=== PATIENT | female | born 1970 | race Caucasian/White ===

== ENCOUNTER → 2020-04-28 10:17 | Outpatient (CLI) | payer MEDICARE, BC, SELFPAY ==
--- NOTE | 2020-04-28 10:17 | MR_ITS ---
PROCEDURE: MR KNEE RT WO CON CLINICAL INDICATION: right knee pain after fall Posttraumatic pain, peripatellar pain and swelling COMPARISON: No exams were available for comparison TECHNIQUE: Routine multiplanar multi echo sequences are performed without gadolinium enhancement. FINDINGS: The posterior cruciate ligament appears intact. There is tear of the ACL with retracted ACL fiber long the posterior aspect of the knee joint. Collateral ligaments appear intact. The patellar tendon and quadriceps tendon appears intact. Horizontal tear involves the posterior horn of the medial meniscus. There are mild osteoarthritic changes of the knee. Small knee joint effusion is noted. Small focus of decreased T1 and increased T2 signal involves the medial aspect of the lateral tibial plateau and could be due to an area of bone marrow edema from bone bruise or developing osteochondrosis. A loose body is suspected along the posterior aspect of the proximal tibia medially posterior to the posterior cruciate ligament insertion. This area measures approximately 5 mm. There is thinning of the patellar cartilage with some increased T2 signal involving the patella posteriorly. There is very mild lateral patellar subluxation. The medial patellofemoral ligament does appear to be intact. There is a small knee joint effusion and a small Figueroa's cyst which measures 4.3 by 0.8 cm. IMPRESSION: 1. ACL tear. 2. Horizontal tear involves the posterior horn of the medial meniscus 3. Mild osteoarthritic changes with knee joint effusion and Figueroa's cyst. 4. Abnormal bone marrow signal intensity of the lateral tibial plateau medially and could be due to an area of bone bruise or osteochondrosis. 5. Chondromalacia patella Dictated by: Catalino Watkins MD 04/28/2020 14:33 Catalino Watkins MD in [place] 04/28/2020 14:33
--- NOTE | 2020-04-28 10:17 | MM_ITS ---
PROCEDURE: MM DIG SC MAMM UNILAT RT CAD Digital Breast Tomosynthesis Included CLINICAL INDICATION: breast ca screening There has been a previous left mastectomy COMPARISON: No exams were available for comparison TECHNIQUE: Standard CC and MLO images and 3D Tomosynthesis was obtained. R2 CAD reviewed. FINDINGS: Moderate diffuse fibroglandular densities are seen throughout the breast. There is a nodular density near the axillary tail likely an intramammary node. There is no suspicious lesion and no suspicious microcalcifications. IMPRESSION: Moderate breast density with no suspicious lesions seen BI-RAD Category: 2 Benign Finding(s) FOLLOW-UP: 1YR 1 Year Follow-up (A letter has been sent to the patient regarding results of the study.) Dictated by: Dr. Reynold Coyle MD 05/04/2020 08:28 Dr. Reynold Coyle MD in [place] 05/04/2020 08:28
== END ==
PROVIDERS: PCP Family Medicine; Visit Provider Family Medicine
DX: M25.561 Pain in right knee; Z12.31 Encounter for screening mammogram for malignant neoplasm of breast
CPT/HCPCS: 73721; 77063; 77067

== ENCOUNTER → 2020-05-17 11:34 | Outpatient (CLI) | payer MEDICARE, BC, SELFPAY ==
--- NOTE | 2020-05-17 11:39 | XR_ITS ---
PROCEDURE: XR KNEE RT 4V CLINICAL INDICATION: right knee pain; weightbearing COMPARISON: No exams were available for comparison FINDINGS: No fracture or dislocation. No lytic or blastic change. There is normal mineralization. There are mild osteoarthritic changes involving all 3 compartments greatest at the medial compartment. Small osteophytes are present at the tibial spines and the medial aspect of the knee joint. There is suggestion of a small suprapatellar effusion. Other findings:None. IMPRESSION: Mild osteoarthritis Dictated by: Catalino Watkins MD 05/17/2020 15:18 Catalino Watkins MD in [place] 05/17/2020 15:18
== END ==
PROVIDERS: PCP Family Medicine; Visit Provider Orthopaedic Surgery
DX: M25.561 Pain in right knee (principal)
CPT/HCPCS: 73564

== ENCOUNTER 2020-07-16 20:40 | Emergency (ER) | payer MEDICARE, MEDICAID, SELFPAY ==
[2020-07-16 20:40] VITALS: BP 143/89; PULSE 117; RESP 16; TEMP 37.1; O2SAT 98; BMI 32.0
--- NOTE | 2020-07-16 21:10 | PC.NURSE ---
NIH of 0 during initial assessment.
--- NOTE | 2020-07-16 21:15 | PC.NURSE ---
called honey for records.
--- NOTE | 2020-07-16 21:56 | ECG_ITS ---
APPROVED REPORT Exam: Resting ECG HR:112 bpm ECG Measurements Heart Rate 112 AXES SD 112 P 72 QRSd 76 QRS 22 QT 470 T 67 QTc 641 Conclusion Sinus tachycardia Cannot rule out Anterior infarct, age undetermined Abnormal ECG Electronically signed by : Kishore Huerta, 07/17/2020 19:40:01
[2020-07-16 22:01] LABS: Basophils % 0.2 % (0.1-2.0); Eosinophils % 0.2 % (0.1-12.0); Hematocrit 38.2 % (37.0-47.0); Hemoglobin 12.4 g/dL (12.2-16.2); Lymphocytes # 0.9 K/mm3 (0.7-4.5); Lymphocytes % 10.8 % (10-50); Mean Corpuscular HGB Conc 32.4 g/dL (31.8-35.4); Mean Corpuscular Hemoglobin 30.6 pg (27.0-31.2); Mean Corpuscular Volume 94.4 fl (81-99); Mean Platelet Volume 7.4 fl (7.4-10.4); Monocytes # 0.2 K/mm3 (0.1-1.0); Monocytes % 1.8 % (1.7-9.3); Neutrophils # 7.2 K/mm3 (1.8-7.8); Platelet Count 303 K/mm3 (142-424); Red Blood Count 4.04 M/mm3 (4.20-5.40); Red Cell Distribution Width 14.7 % (11.5-17.5); White Blood Count 8.3 K/mm3 (4.8-10.8)
[2020-07-16 22:03] LABS: MANUAL DIFFERENTIAL MANUAL DIFFERENTIAL (MANUAL DIFF)
[2020-07-16 22:06] VITALS: BP 126/78; PULSE 102; RESP 16; O2SAT 96
[2020-07-16 22:07] LABS: Alanine Aminotransferase 21 U/L (12-78); Albumin Level 4.2 g/dl (3.5-5.0); Albumin/Globulin Ratio 1.1 (1.1-1.8); Alkaline Phosphatase 73 U/L (38-126); Anion Gap 12.4 mEq/L (5-15); Aspartate Amino Transferase 34 U/L (14-36); Bilirubin,Total 0.2 mg/dl (0.2-1.3); Blood Urea Nitrogen 6 mg/dl (7-17); Calcium 9.5 mg/dl (8.4-10.2); Carbon Dioxide 24 mmol/L (22.0-30.0); Chloride 109 mmol/L (98-107); Creatinine Clearance Estimated 88 mL/min (50-200); Estimated Glomerular Filt Rate 66 ml/min (>60); GFR (African American) 80 ML/MIN (>60); Globulin 3.7 g/dL (1.3-3.2); Glucose 152 mg/dl (74-100); Potassium 3.4 mmoL/L (3.5-5.1); Sodium 142 mmol/L (136-145); Total Protein,Serum 7.9 g/dl (6.3-8.2)
[2020-07-16 22:12] LABS: C-Reactive Protein 32.9 mg/L (0-4)
[2020-07-16 22:21] LABS: Lymphocytes % 14 % (10-50); Neutrophils % 83 % (42-76); Platelet Estimate Normal; RBC Morphology Normal; Total Cells Counted 100
--- NOTE | 2020-07-16 22:21 | HMH.EDNEU ---
ED Disposition Clinical Impression: Weakness Disposition: Home, Self-Care Condition on Discharge: Good Instructions: DI for Muscle Weakness Additional Instructions: see pcp for follow up Referrals: Henry Kirkland MD [Primary Care Provider] - - Critical Care Critical Care Time: No Attestation: On 07/16/20, the high probability of a clinically significant, sudden or life threatening deterioration of the following system(s) required my full and direct attention, intervention and personal management. The time I documented below is in addition to time spent performing reported procedures but includes the following listed in this critical care notation. Medical Decision Making - Medical Records Medical records reviewed: Yes: I reviewed the patient's medical records. - Robert Inquiry Pt receiving controlled substance: No Vital Signs: 07/16/20 20:40 07/16/20 22:06 07/16/20 22:30 Temperature 98.8 F Temperature Source Oral Pulse Rate 102 H 96 H Pulse Rate [Left Radial] 117 H Respiratory Rate 16 16 17 Blood Pressure 126/78 126/81 Blood Pressure [Right Arm] 143/89 H Blood Pressure Mean [Right Arm] 107 Blood Pressure Source [Right Arm] Automatic Cuff Blood Pressure Position [Right Arm] Supine 02 Sat by Pulse Oximetry 98 96 91 L Oxygen Delivery Method Room Air Room Air Room Air 07/16/20 23:30 07/17/20 00:00 Temperature Temperature Source Pulse Rate 96 H 94 H Pulse Rate [Left Radial] Respiratory Rate 16 Blood Pressure 128/83 120/76 Blood Pressure [Right Arm] Blood Pressure Mean [Right Arm] Blood Pressure Source [Right Arm] Blood Pressure Position [Right Arm] 02 Sat by Pulse Oximetry 94 L 95 Oxygen Delivery Method Room Air Room Air - Lab Data Lab results reviewed: Yes: I reviewed the patient's lab results. Lab Results 07/16/20 21:45: WBC 8.3, RBC 4.04 L, Hgb 12.4, Hct 38.2, MCV 94.4, MCH 30.6, MCHC 32.4, RDW 14.7, Plt Count 303, MPV 7.4, Neut % (Auto) 87.0 H, Lymph % (Auto) 10.8, [place] % (Auto) 1.8, Eos % (Auto) 0.2, Baso % (Auto) 0.2, Neut # (Auto) 7.2, Lymph # (Auto) 0.9, [place] # (Auto) 0.2, Eos # (Auto) 0.0, Baso # (Auto) 0.0, Total Counted 100, Neutrophils % (Manual) 83 H, Band Neutrophils % 3.0, Lymphocytes % (Manual) 14, Platelet Estimate Normal, RBC Morphology Normal, ESR 38 H 07/16/20 21:45: Sodium 142, Potassium 3.4 L, Chloride 109 H, Carbon Dioxide 24, Anion Gap 12.4, BUN 6 L, Creatinine 0.90, Estimated Creat Clear 88, Estimated GFR 66, Est GFR ( Amer) 80, Glucose 152 H, Calcium 9.5, Total Bilirubin 0.2, AST 34, ALT 21, Alkaline Phosphatase 73, C-Reactive Protein 32.9 H, Total Protein 7.9, Albumin 4.2, Globulin 3.7 H, Albumin/Globulin Ratio 1.1 07/16/20 21:45: Salicylates < 1.0 L, Acetaminophen < 10 L 07/16/20 21:45: Plasma/Serum Alcohol < 10 07/16/20 23:40: Urine Color Yellow, Urine Appearance Clear, Urine pH 6.0, Ur Specific [place] <= 1.005, Urine Protein Negative, Urine Glucose (UA) Negative, Urine Ketones Negative, Urine Blood Negative, Urine Nitrate Negative, Urine Bilirubin Negative, Urine Urobilinogen 0.2, Ur Leukocyte Esterase Negative Result diagrams: 07/16/20 21:45 07/16/20 21:45 Orders (Tests/Meds): ORDERS Category Date Time Status CT head/brain wo con Stat Cat Scan 07/16/20 22:25 Taken UA [Urinalysis and Microscopic] Stat Lab 07/16/20 23:40 Results UDS [Drug Screen,Urine] Stat Lab 07/16/20 23:40 Received - CT Data CT Scan: Head Time Received: 00:[address] Reviewed: Yes: I have viewed the radiologist's interpretation Preliminary Findings: Normal/NAD - ECG Data Tracing #1 Normal Sinus Rhythm: Yes Ischemic changes: non-specific ST-T wave changes Medical Decision Narrative: has no focal cva changes will ask pt to see pcp for follow up Neuro HPI - General Chief Complaint: Neuro Symptoms/Deficit Stated Complaint: possible stroke Time Seen by Provider: 07/16/20 20:50 Mode of Arrival: Wheelchair Source of Information: [facility]
[2020-07-16 22:25] LABS: Erythrocyte Sedimentation Rate 38 mm/hr (0-20)
--- NOTE | 2020-07-16 22:25 | CT_ITS ---
PROCEDURE: CT HEAD/BRAIN WO CON CLINICAL INDICATION: altered mental status COMPARISON: No exams were available for comparison TECHNIQUE: Axial images obtained. All CT scans at the facility use one or more dose reduction, viz: automated exposure control, ma/kV adjustment per patient size (including targeted exams where dose is matched to indication, i.e. head), or iterative reconstruction technique. FINDINGS: No midline shift, mass effect, intracranial hemorrhage, hydrocephalus, or extra-axial fluid collection is evident. The sylvian fissures and cortical sulci are mildly prominent. The ventricular system is normal. The calvarium has an unremarkable appearance. No mastoid effusion. No sinus air-fluid level. IMPRESSION: Findings of mild age-appropriate cortical atrophy, no acute intracranial pathology noted Dictated by: Dr. Reynold Coyle MD 07/17/2020 08:24 Dr. Reynold Coyle MD in [place] 07/17/2020 08:24
[2020-07-16 22:30] VITALS: BP 126/81; PULSE 96; RESP 17; O2SAT 91
[2020-07-16 22:38] LABS: Acetaminophen < 10 ug/ml (10-30); Salicylate < 1.0 mg/dL (2.0-20.0)
[2020-07-16 22:39] LABS: Ethyl Alcohol < 10 mg/dl (0-10)
[2020-07-16 23:30] VITALS: BP 128/83; PULSE 96; O2SAT 94
[2020-07-16 23:48] LABS: Microscopic, Urine URINE MICROSCOPIC (MICROSCOPIC)
[2020-07-17] VITALS: BP 120/76; PULSE 94; RESP 16; O2SAT 95
[2020-07-17 00:10] LABS: Appearance,Urine CLEAR (Clear); Bilirubin,Urine Negative (Negative); Blood, Urine Negative (Negative); Color,Urine YELLOW (Yellow); Glucose,Urine (UA) Negative (Negative); Ketones,Urine Negative (Negative); Leukocyte Esterase,Urine Negative (Negative); Nitrate,Urine Negative (Negative); Protein,Urine Negative (Negative); Specific Gravity, Urine <= 1.005 (1.005-1.030); Urobilinogen,Urine 0.2 EU/dl (0.2)
[2020-07-17 00:19] LABS: Amphetamine/Metha Screen,Urine Negative ng/ml (<1000)
[2020-07-17 00:20] LABS: Barbiturates Screen,Urine Negative ng/ml (<200); Benzodiazepines Screen,Urine Positive ng/ml (<200)
[2020-07-17 00:21] VITALS: BP 120/76; PULSE 95; RESP 16; TEMP 36.7; O2SAT 95
[2020-07-17 00:21] LABS: Cannabinoid Screen,Urine Positive ng/ml (<50); Methadone Screen,Urine Negative ng/ml (<300)
[2020-07-17 00:22] LABS: Cocaine Screen,Urine Negative ng/ml (<300)
[2020-07-17 00:23] LABS: Opiate Screen,Urine Negative ng/ml (<300); Phencyclidine Screen,Urine Negative ng/ml (<25)
[2020-07-17 00:26] LABS: Amorphous Sediment,Urine Trace /lpf; Squamous Epithelial Cell,Urine Occasional #/hpf (0-5)
== END 2020-07-17 00:46 | disposition home or self-care (01) ==
PROVIDERS: Emergency Provider Emergency Medicine; PCP Family Medicine
DX: R53.83 Other fatigue (principal); R26.9 Unspecified abnormalities of gait and mobility; J44.9 Chronic obstructive pulmonary disease, unspecified; I25.10 Atherosclerotic heart disease of native coronary artery without angina pectoris; I10 Essential (primary) hypertension; F41.9 Anxiety disorder, unspecified; F17.210 Nicotine dependence, cigarettes, uncomplicated; Z79.899 Other long term (current) drug therapy
CPT/HCPCS: 36415; 70450; 80053; 80305; 80329; 81001; 85007; 85025; 85651; 86140; 93005; 99283

== ENCOUNTER → 2020-09-04 12:34 | Outpatient (CLI) | payer MEDICARE, MEDICAID, SELFPAY ==
[2020-09-04 13:10] LABS: Basophils % 0.5 % (0.1-2.0); Eosinophils # 0.2 K/mm3 (0.0-0.4); Eosinophils % 3.2 % (0.1-12.0); Hematocrit 39.8 % (37.0-47.0); Hemoglobin 12.6 g/dL (12.2-16.2); Lymphocytes # 1.7 K/mm3 (0.7-4.5); Lymphocytes % 35.5 % (10-50); Mean Corpuscular HGB Conc 31.6 g/dL (31.8-35.4); Mean Corpuscular Hemoglobin 30.7 pg (27.0-31.2); Mean Corpuscular Volume 97.3 fl (81-99); Mean Platelet Volume 7.4 fl (7.4-10.4); Monocytes # 0.3 K/mm3 (0.1-1.0); Monocytes % 7.1 % (1.7-9.3); Neutrophils # 2.6 K/mm3 (1.8-7.8); Neutrophils % 53.7 % (37.0-80.0); Platelet Count 357 K/mm3 (142-424); Red Blood Count 4.09 M/mm3 (4.20-5.40); Red Cell Distribution Width 14.4 % (11.5-17.5); White Blood Count 4.8 K/mm3 (4.8-10.8)
[2020-09-04 14:32] LABS: Chloride 105 mmol/L (98-107); Potassium 3.9 mmoL/L (3.5-5.1); Sodium 139 mmol/L (136-145)
[2020-09-04 14:34] LABS: Alanine Aminotransferase 11 U/L (12-78); Aspartate Amino Transferase 20 U/L (14-36); Blood Urea Nitrogen 8 mg/dl (7-17); Estimated Glomerular Filt Rate 76 ml/min (>60); GFR (African American) 92 ML/MIN (>60)
[2020-09-04 14:35] LABS: Albumin Level 4.2 g/dl (3.5-5.0); Albumin/Globulin Ratio 1.3 (1.1-1.8); Alkaline Phosphatase 54 U/L (38-126); Anion Gap 13.9 mEq/L (5-15); Bilirubin,Total 0.3 mg/dl (0.2-1.3); Calcium 9.4 mg/dl (8.4-10.2); Carbon Dioxide 24 mmol/L (22.0-30.0); Globulin 3.3 g/dL (1.3-3.2); Glucose 87 mg/dl (74-100); Total Protein,Serum 7.5 g/dl (6.3-8.2)
== END ==
PROVIDERS: PCP Family Medicine; Visit Provider Orthopaedic Surgery
DX: Z01.818 Encounter for other preprocedural examination (principal); M17.11 Unilateral primary osteoarthritis, right knee; Z11.52 Encounter for screening for COVID-19
CPT/HCPCS: 36415; 80053; 85025; 86850

== ENCOUNTER 2020-09-05 09:57 | Observation (INO) | payer MEDICARE, MEDICAID, SELFPAY ==
[2020-09-01 12:22] VITALS: BMI 31.2
[2020-09-05] VITALS (23 sets, daily range): BP systolic 102–155; BP diastolic 53–89; PULSE 84–109; RESP 16–20; TEMP 36.2–43; O2SAT 93–100
[2020-09-05 06:48] LABS: Adenovirus,PCR Not Detected (NotDetected); Bordetella Pertussis Not Detected (NotDetected); Chlamydophila Pneumoniae, PCR Not Detected (NotDetected); Coronavirus 19, PCR Not Detected (NotDetected); Coronavirus 229E Not Detected (NotDetected); Coronavirus NL63 Not Detected (NotDetected); Coronavirus OC43 Not Detected (NotDetected); Coronovirus HKU1,PCR Not Detected (NotDetected); Human Metapneumovirus Not Detected (NotDetected); Influenza A, PCR Not Detected (NotDetected); Influenza AH1, 2009 Not Detected (NotDetected); Influenza AH1, PCR Not Detected (NotDetected); Influenza AH3,PCR Not Detected (NotDetected); Influenza B, PCR Not Detected (NotDetected); Mycoplasma Pneumoniae, PCR Not Detected (NotDetected); Parainfluenza 1, PCR Not Detected (NotDetected); Parainfluenza 2, PCR Not Detected (NotDetected); Parainfluenza 3, PCR Not Detected (NotDetected); Parainfluenza 4, PCR Not Detected (NotDetected); Respiratory Syncytial Virus Not Detected (NotDetected); Rhinovirus/Enterovirus Not Detected (NotDetected)
--- NOTE | 2020-09-05 06:54 | HMH.ANESCL ---
[facility] Anesthesia Checklist - Patient Identification Patient Identification: Arm Band - Structural Data Admitted From: Home Planned Operative Procedure/s: TKA Consent for Planned Operative Procedure(s) Verified: Yes - NPO Status Verified Time NPO: 00:00 - Additional verifications Anesthesia Reactions: No Hx Blood Transfusions: No Blood Transfusion Reaction: No - Airway Assessment C-Spine Mobility Assessed: Yes TMJ Mobility Assessed: Yes Dentition: Edentulous - Neurological Assessment Level of Consciousness: Awake Hx Seizures: No Numbness or tingling in extremities: No - Anesthesia Plan Anesthesia Risk discussed: Yes Anesthesia Plan: Verified ASA Class: III Anesthesia Type: General w/block [facility] History I have reviewed the patient's past medical history: Yes Medical History: Reports:: Anxiety, Cancer (breast), Chronic Obstructive Pulmonary Disease (COPD), Coronary Artery Disease, Hypertension Denies:: Diabetes Mellitus Type 1, Diabetes Mellitus Type 2, Internal Pacemaker, MRSA, Seizures *Have you ever received a pneumonia vaccine?: Yes *Have you received a flu vaccine this season?: Yes Other Medical History: Reports: Arthritis. Denies: Blood Transfusion Reaction Anesthesia experience/problems:: None Laterality Cases: Left: Mastectomy, Bilateral: Carpal Tunnel Release Other Surgeries: Yes: Angioplasty, Cancer Surgery, Tubal Ligation. No: Pacemaker Amputation: No - *Social History Last grade of school completed: 11th or 12th Smoking Status: Current every day smoker Tobacco Type: cigarettes # Packs/Day (cigarettes): 1 Alcohol Intake: never Substance Use Type: denies use *Occupational Status:: disabled Housing: house Household Members: family *Travel in the last 8 weeks: None - Psychiatric History Pschychiatric History:: Reports:: Anxiety Family Hx:: Stroke, Coronary Artery Disease
[2020-09-05 06:56] LABS: Urine Pregnancy, HCG Qual. Negative (Negative)
--- NOTE | 2020-09-05 12:23 | HMH.ANESI ---
[facility] Anesthesia Record Part I Intake, IV Amount: 800 Estimated blood loss (mL): 30 Urine output (mL): 100 Blood Pressure: 120/83 SaO2: 94 Pulse Rate: 109 Respiratory Rate: 20 Temperature: 97.2 F Patient is:: Awake Stable to PACU at:: 12:20
--- NOTE | 2020-09-05 12:36 | XR_ITS ---
PROCEDURE: XR KNEE RT 2V CLINICAL INDICATION: TKA Follow-up knee replacement COMPARISON: CR XR KNEE RT 4V from 05/17/2020 FINDINGS: Status post total right knee replacement. Good alignment. Postsurgical gas is. Transverse lucencies are present at the proximal medial aspect of the proximal tibia and may be related to the surgical procedure. IMPRESSION: Status post total knee replacement with good alignment as described above. Dictated by: Catalino Watkins MD 09/05/2020 13:00 Catalino Watkins MD in [place] 09/05/2020 13:00
--- NOTE | 2020-09-05 13:03 | PC.NURSE ---
Report received from MONUMENT CARVER.
--- NOTE | 2020-09-05 13:25 | HMH.OPNOTE ---
Date of procedure: 09/05/20 Pre-op Diagnosis:: 1. Degenerative arthritis, right knee 2. ACL tear, right knee 3. Medial meniscal tear, right knee Post-op Diagnosis:: Same Procedure performed:: Uncemented total knee arthroplasty, right Surgeon:: Julián Kenney MD Secret Code Expert(s):: Billie Camargo [employer]:: [facility] Anesthesia: regional (Adductor canal block), spinal, LMA Estimated blood loss (mL): 30 Clinical Note:: Patient is a 50-year-old female with predominantly medial compartment osteoarthritis, ACL tear and medial meniscus tear of her right knee presented with unremitting severe pain not relieved by conservative management. Patient also reports that her knee gives out on a regular basis and she is at risk of falling and injuring herself. The pain is constant, interfering with her activities of daily living; she also reports night pain and sleep disturbance on a daily basis. The symptoms are are advanced to the point that it is becoming a hazard for the patient with risk of falling and injuring herself. A total knee arthroplasty is indicated to relieve the pain, improve function, reduce the risk of falls and improve quality of life. Her symptoms started following an injury [place] a gas station in March 2020. Please refer to my office note for full details. Operative findings:: As noted on the preoperative evaluation, the knee joint has a range of motion from 5 to 110 degrees of flexion. She also has findings consistent with ACL deficiency with the positive anterior drawers, positive Anna Marie's and positive pivot shift test. As seen on the x-rays, mainly the medial and patellofemoral compartments are showing degenerative changes with with loss of articular cartilage and osteophyte formation. There is complete tear of the ACL and there is degenerative medial meniscal tear. There is osteophyte formation mainly over the medial compartment. Bone quality is excellent. Operative note:: On the day of the surgery the patient and her daughter were seen in the preoperative area. I have again reviewed the clinical and x-ray findings and again discussed the diagnosis, natural history and management options in detail including both nonsurgical and surgical. Patient has degenerative arthritis of the right knee with ACL and medial meniscal tears. She has failed to respond satisfactorily to appropriate conservative management so far and has opted for a total knee arthroplasty. The right knee joint is stiff and painful, and is limiting mobility, ADLs and quality of life. Also the knee gives out and patient is at risk of falls resulting in fractures. I have again discussed the details of the procedure, risks and benefits and alternatives in detail. The complications discussed include but are not limited to infection, injury to nerves and blood vessels including injury to popliteal artery, injury to tendons and ligaments, DVT and PE, fat embolism, intraoperative fracture, limb length inequality, patella fracture, patellofemoral instability, patellar clunk syndrome, quadriceps and patellar tendon rupture, implant failure, component loosening, periprosthetic femur and tibia fractures, stiffness /arthrofibrosis, limp, incomplete relief of pain, incomplete functional recovery, likely need for further surgery in future including revision and anesthetic complications including heart attack, stroke and even . We also discussed about the likely need for blood transfusion and transfusion reactions. We discussed how any of these events can be devastating. We have discussed nonsurgical alternatives as well. Patient understands and wishes to proceed with a right total knee arthroplasty as planned and I believe that he is fully informed as to the risks, benefits, and alternatives including nonsurgical alternatives. We also discussed the postoperative course including the rehab and physical therapy required. A physical examination was performed and documented. Mina
--- NOTE | 2020-09-05 13:53 | P.CONPHA_ITS ---
[facility] Pharmacy VTE Monitoring - Patient Demographics Admission date: 09/05/20 Report Date: 09/05/20 Time: 13:53 Allergies/Adverse Reactions: Patient Allergies tramadol Adverse Reaction (Severe, Verified 09/05/20 06:26) Vomiting Height: 1.52 m Weight: 72.575 kg - Prophylaxis VTE Prophylaxis Ordered?: Yes Types of VTE Prophylaxis: IPCS Thigh High, Pharmacological Location of Applied Device: Bilateral Lower Extremeties Pharmacologic Type: Other (XARELTO)
[2020-09-05 14:33] LABS: Microscopic,Cath URINE MICROSCOPIC (MICROSCOPIC)
--- NOTE | 2020-09-05 14:36 | PC.NURSE ---
Dr. Kenney in room.
[2020-09-05 14:44] LABS: Appearance,Urine/Cath CLEAR (Clear); Bilirubin,Cath Negative (Negative); Blood, Urine/Cath Negative (Negative); Color,Urine/Cath YELLOW (Yellow); Glucose,Urine/Cath (UA) Negative (Negative); Ketones,Urine/Cath Negative (Negative); Leukocyte Esterase,Cath Negative (Negative); Nitrate,Cath Negative (Negative); Protein,Urine/Cath Negative (Negative); Specific Gravity, Urine/Cath 1.025 (1.005-1.030); Urobilinogen,Cath 0.2 EU/dl (0.2)
[2020-09-05 14:46] LABS: Bacteria,Urine/Cath 2+ /lpf; Mucus,Urine/Cath 1+ /lpf; RBC,Urine/Cath Occasional # /hpf (0-3)
--- NOTE | 2020-09-05 15:15 | HMH.ORTHHP ---
*Admission Date: 09/05/20 *Reason for consult:: S/p total knee arthroplasty, right *History of present illness: Patient is 50 year old female admitted to hospital today after an uneventful right total knee arthroplasty. She developed right knee pain following an injury in March 2020. Evaluation including x-rays and MRI scan of the right knee showed degenerative arthritis, medial meniscal tear and ACL tear. She has been having chronic right knee pain which has failed to respond satisfactorily to nonsurgical management. Following evaluation in the office, patient elected to proceed with a total knee arthroplasty. X-rays of her knee joint showed moderate degenerative changes over the medial and patellofemoral compartments. The pain increases with walking, or standing for too long. Please refer to my office note for full details. Total knee arthroplasty is indicated to reduce the risk of falls, improve her pain and mobility and quality of life. The surgical and nonsurgical alternatives were discussed in detail with the patient as well as the risks and benefits of the surgery. [facility] History I have reviewed the patient's past medical history: Yes Medical History: Reports:: Anxiety, Cancer (breast), Chronic Obstructive Pulmonary Disease (COPD), Coronary Artery Disease, Hypertension Denies:: Diabetes Mellitus Type 1, Diabetes Mellitus Type 2, Internal Pacemaker, MRSA, Seizures *Have you ever received a pneumonia vaccine?: Yes *Have you received a flu vaccine this season?: No Other Medical History: Reports: Arthritis. Denies: Blood Transfusion Reaction Anesthesia experience/problems:: None Laterality Cases: Left: Mastectomy, Bilateral: Carpal Tunnel Release Other Surgeries: Yes: Angioplasty, Cancer Surgery, Tubal Ligation. No: Pacemaker Amputation: No - *Social History Last grade of school completed: 11th or 12th Smoking Status: Current every day smoker Tobacco Type: cigarettes # Packs/Day (cigarettes): 1 Alcohol Intake: never Substance Use Type: denies use *Occupational Status:: disabled Housing: house Household Members: family *Travel in the last 8 weeks: None - Psychiatric History Pschychiatric History:: Reports:: Anxiety Family Hx:: Stroke, Coronary Artery Disease Review of Systems - Review of Systems Review of systems:: pertinent systems reviewed and negative unless documented below - Constitutional Denies anorexia, Denies chills, Denies fever(s) - Eyes Denies change in vision - ENT Denies abnormal hearing - *Cardiovascular Denies chest pain, Denies shortness of breath - *Respiratory Denies chest congestion, Denies shortness of breath - *Gastrointestinal Denies abdominal pain, Denies change in bowel habits - *Musculoskeletal Reports abnormal walking, Reports joint pain, Reports limited joint movement - *Neurologic Reports abnormal walking, Reports frequent falls, Denies seizure-like activity, Denies dizziness, Denies tingling/numbness/burning sensations - Endocrine Denies cold intolerance, Denies heat intolerance - Hematologic/Lymphatic Denies easy bleeding, Denies easy bruising Meds Home Medications Medication Instructions Recorded Confirmed Type rivaroxaban 20 mg tablet 20 mg PO DAILY tab 07/01/17 09/05/20 History venlafaxine 150 mg 150 mg PO DAILY 10/22/19 09/05/20 History capsule,extended release 24 hr naproxen 500 mg tablet 500 mg PO BID PRN #30 tab 07/18/20 09/05/20 Rx trazodone 100 mg tablet 100 mg PO HS PRN #30 tab 07/18/20 09/05/20 Rx albuterol sulfate 90 mcg/actuation 2 puff INHALATION Q4-6H PRN #6.7 g 08/02/20 09/05/20 Rx aerosol inhaler Chlorhexidine Gluconate 1 applic TOPICAL Q5M 09/01/20 09/05/20 History Fluticasone/Umeclidin/Vilanter 1 inh INHALATION DAILY 09/01/20 09/05/20 History [Phu Ellipta] Metoprolol Succinate [Metoprolol 25 mg PO DAILY 09/01/20 09/05/20 History Succinate 25mg Tablet*] Mupirocin [Centany] 1 applic TOPICAL BID 09/01/20 09/05/20 History diazePAM [
--- NOTE | 2020-09-05 15:22 | PC.NURSE ---
Dr. Kirkland Office notified of medical consult.
--- NOTE | 2020-09-05 17:58 | PC.NURSE ---
Dr. Kirkland in room.
--- NOTE | 2020-09-05 18:16 | HMH.CONS ---
*Admission Date: 09/05/20 *History of present illness: Patient is 50 year old female admitted to hospital today after an uneventful right total knee arthroplasty. She developed right knee pain following an injury in March 2020. Evaluation including x-rays and MRI scan of the right knee showed degenerative arthritis, medial meniscal tear and ACL tear. She has been having chronic right knee pain which has failed to respond satisfactorily to nonsurgical management. Following evaluation in the office, patient elected to proceed with a total knee arthroplasty. X-rays of her knee joint showed moderate degenerative changes over the medial and patellofemoral compartments. The pain increases with walking, or standing for too long. Please refer to my office note for full details. Total knee arthroplasty is indicated to reduce the risk of falls, improve her pain and mobility and quality of life. The surgical and nonsurgical alternatives were discussed in detail with the patient as well as the risks and benefits of the surgery. History of ca breast left, excised 9 years ago. 12 nodes were positive, and she underwent excessive xrt. 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 She is s/p excision of her first rib on the right. Longstanding history of tobacco, began age 13. History of copd. Has home 02, which she infrequently uses. History of cad, s/p angioplasty. Had previously seen Dr Callejas. Pneumonia w/sepsis, treated at [facility] and ut'd on omnicef/azithromycin. [facility] History Medical History: Reports:: Anxiety, Cancer (breast), Chronic Obstructive Pulmonary Disease (COPD), Coronary Artery Disease, Hypertension Denies:: Diabetes Mellitus Type 1, Diabetes Mellitus Type 2, Internal Pacemaker, MRSA, Seizures *Have you ever received a pneumonia vaccine?: Yes *Have you received a flu vaccine this season?: No Other Medical History: Reports: Arthritis. Denies: Blood Transfusion Reaction Anesthesia experience/problems:: None Laterality Cases: Left: Mastectomy, Bilateral: Carpal Tunnel Release Other Surgeries: Yes: Angioplasty, Cancer Surgery, Tubal Ligation. No: Pacemaker Amputation: No - *Social History Last grade of school completed: 11th or 12th Smoking Status: Current every day smoker Tobacco Type: cigarettes # Packs/Day (cigarettes): 1 Alcohol Intake: never Substance Use Type: denies use *Occupational Status:: disabled Housing: house Household Members: family *Travel in the last 8 weeks: None - Psychiatric History Pschychiatric History:: Reports:: Anxiety Family Hx:: Stroke, Coronary Artery Disease Review of Systems - Constitutional Reports lack of energy - Eyes Denies change in vision - ENT Reports neck pain - *Cardiovascular Reports shortness of breath with activity, Denies chest pain - *Respiratory Reports shortness of breath with activity, Denies chest congestion - *Gastrointestinal Denies abdominal pain - *Genitourinary Denies painful urination - *Musculoskeletal Reports abnormal walking, Reports joint pain, Reports back pain, Reports joint swelling, Reports limited joint movement, Reports muscle weakness, Reports stiffness - Integumentary/Breasts Denies yellowing of the skin - *Neurologic Reports abnormal walking, Reports frequent falls, Denies abnormal hearing, Denies seizure-like activity, Denies dizziness, Denies tingling/numbness/burning sensations - Psychiatric Reports anxiety, Reports depression, Reports panic attacks - Endocrine Denies rapid, pounding, or irregular heartbeat - Hematologic/Lymphatic Reports easy bruising, Denies easy bleeding - Allergic/Immunologic Denies hives Meds Home Medications Medication Instructions Recorded Confirmed Type rivaroxaban 20 mg tablet 20 mg PO DAILY tab 07/01/17 09/05/20 History venlafaxine 150 mg 150 mg PO DAILY 10/22/19 09/05/20 History capsule,extended release 24 hr naproxen 500 mg tablet 500 mg PO BI
[2020-09-06] VITALS (9 sets, daily range): BP systolic 102–142; BP diastolic 62–86; PULSE 93–108; RESP 16–20; TEMP 36.2–37.1; O2SAT 96–100
--- NOTE | 2020-09-06 03:43 | PC.NURSE ---
PT HAS DONE WELL THIS SHIFT AND HAS RESTED. PAIN CONTROLLED WITH PRN MEDS. PT HAS F/C WHICH IS PATENT AND DRAINING YELLOW URINE. VSS. KNEE IMMOBILIZER IN PLACE AND PILLOW UNDER ANKLE PER ORDERS WELL POLAR PACK. LUNGS CTAB AND BOWELS ARE NORMOACTIVE. PT TOLERATING REGULAR DIET. CALL SILVESTRE IN REACH.
--- NOTE | 2020-09-06 05:50 | PC.NURSE ---
radiology at bedside for xray
--- NOTE | 2020-09-06 06:00 | XR_ITS ---
PROCEDURE: XR CHEST PORTABLE CLINICAL HISTORY: copd and history of pneumonia COMPARISON: No exams were available for comparison FINDINGS: The cardiomediastinal silhouette and pulmonary vascularity are within normal limits. A vascular stent is present in the region the right brachiocephalic vein and superior vena cava. The stent appears collapsed at the brachiocephalic region. Patchy density is present in the right mid and lower lung zone suspicious for an area pneumonia with some bronchial thickening. There are no previous exams available to confirm with if this is acute or chronic. The anterior aspect of the right 2nd rib is missing and could be due to prior resection. Please correlate with surgical history. Bilateral cervical ribs.. IMPRESSION: 1. Suspect pneumonia in the right mid and lower lung zone with some pleural thickening. 2. Collapsed a vascular stent in the right brachiocephalic/subclavian region 3. Bilateral cervical ribs with missing portion of the right 2nd rib anteriorly which could be due to prior surgery. Please correlate with surgical history. Dictated by: Catalino Watkins MD 09/06/2020 06:29 Catalino Watkins MD in [facility] 09/06/2020 06:29
--- NOTE | 2020-09-06 06:54 | PC.NURSE ---
lab at bedside
[2020-09-06 07:14] LABS: Basophils % 0.3 % (0.1-2.0); Eosinophils # 0.2 K/mm3 (0.0-0.4); Eosinophils % 2.4 % (0.1-12.0); Hematocrit 32.9 % (37.0-47.0); Hemoglobin 10.7 g/dL (12.2-16.2); Lymphocytes % 26.5 % (10-50); Mean Corpuscular HGB Conc 32.6 g/dL (31.8-35.4); Mean Corpuscular Hemoglobin 31.1 pg (27.0-31.2); Mean Corpuscular Volume 95.5 fl (81-99); Mean Platelet Volume 7.5 fl (7.4-10.4); Monocytes # 0.5 K/mm3 (0.1-1.0); Monocytes % 6.7 % (1.7-9.3); Neutrophils # 4.8 K/mm3 (1.8-7.8); Neutrophils % 64.1 % (37.0-80.0); Platelet Count 286 K/mm3 (142-424); Red Blood Count 3.44 M/mm3 (4.20-5.40); Red Cell Distribution Width 14.6 % (11.5-17.5); White Blood Count 7.5 K/mm3 (4.8-10.8)
--- NOTE | 2020-09-06 07:33 | P.PN_ITS ---
[facility] Anesthesia Record Part II Discharge Time: 13:00 Destination: Obstetric PACU nurse assessment reviewed?: Yes Patient Condition:: Good Anesthesia Complications:: None Swallowing reflex intact?: Yes Cyanosis?: No Blood Pressure: 121/77 Pulse Rate: 93 Temperature: 97.2 F Mental Status: Alert & Oriented Pain level:: 2 Nausea and/or vomitting:: None Intake, IV Amount: 0
[2020-09-06 07:38] LABS: Anion Gap 5.8 mEq/L (5-15); Blood Urea Nitrogen 9 mg/dl (7-17); Carbon Dioxide 24 mmol/L (22.0-30.0); Chloride 110 mmol/L (98-107); Creatinine Clearance Estimated 95 mL/min (50-200); Estimated Glomerular Filt Rate 76 ml/min (>60); GFR (African American) 92 ML/MIN (>60); Glucose 98 mg/dl (74-100); Potassium 3.8 mmoL/L (3.5-5.1); Sodium 136 mmol/L (136-145)
[2020-09-06 07:41] LABS: Calcium 7.7 mg/dl (8.4-10.2)
--- NOTE | 2020-09-06 09:14 | HMH.CONFU ---
Internal Medicine - PN: Subj *Date: 09/06/20 *Time: 09:20 Interval history: 50-year-old female patient resting in bed quietly with eyes closed, she awakens to verbal stimuli. She reports pain is at a tolerable level, [id number] is at bedside reports [id number] had a good night. She denies any chest pain, shortness of breath Exam Vital signs and Labs for Last 24 Hours: Temp Pulse Resp BP Pulse Ox 98.6 F 103 H 20 102/62 L 96 09/06/20 08:00 09/06/20 08:00 09/06/20 08:00 09/06/20 08:00 09/06/20 08:00 Laboratory Results - last 24 hr 09/05/20 08:45: Urine Color Yellow, Urine Appearance Clear, Urine pH 7.0, Ur Specific [place] 1.025, Urine Protein Negative, Urine Glucose (UA) Negative, Urine Ketones Negative, Urine Blood Negative, Urine Nitrate Negative, Urine Bilirubin Negative, Urine Urobilinogen 0.2, Ur Leukocyte Esterase Negative, Urine RBC Occasional, Urine WBC 3-5, Ur Squamous Epith Cells 10-20, Urine Bacteria 2+ A 09/06/20 07:00: WBC 7.5 D, RBC 3.44 L, Hgb 10.7 L, Hct 32.9 L, MCV 95.5, MCH 31.1, MCHC 32.6, RDW 14.6, Plt Count 286, MPV 7.5, Neut % (Auto) 64.1, Lymph % (Auto) 26.5, [place] % (Auto) 6.7, Eos % (Auto) 2.4, Baso % (Auto) 0.3, Neut # (Auto) 4.8, Lymph # (Auto) 2.0, [place] # (Auto) 0.5, Eos # (Auto) 0.2, Baso # (Auto) 0.0 09/06/20 07:00: Sodium 136, Potassium 3.8, Chloride 110 H, Carbon Dioxide 24, Anion Gap 5.8, BUN 9, Creatinine 0.80, Estimated Creat Clear 95, Estimated GFR 76, Est GFR ( Amer) 92, Glucose 98, Calcium 7.7 L D I & O for Last 24 hours: Intake & Output 09/03/20 09/04/20 09/05/20 09/06/20 23:59 23:59 23:59 23:59 Intake Total 1050 / 1050 0 / 0 Output Total 100 / 100 600 / 600 Balance 950 / 950 -600 / -600 - Constitutional no acute distress - *Routine HEENT Exam Head: Present: normocephalic Eye: Present: EOMI ENT: Present: mucous membranes moist - *Routine Neck Exam Present: trachea midline. Absent: supple, tracheal deviation - *Routine Respiratory Exam Present: CTA bilaterally. Absent: accessory muscle use - *Routine Cardiovascular Exam Present: RRR - *Routine Abdominal Exam Present: soft, normoactive bowel sounds. Absent: tenderness, firm - *Routine Extremities Exam Present: edema, pulses intact. Absent: cyanosis, clubbing, calf tenderness - *Routine Skin Exam Present: dry, warm. Absent: intact, cyanosis, erythema Comments: Right knee with dressing and knee immobilizer in place - *Routine Neurological Exam Present: alert, oriented X3. Absent: altered mental status - Routine Psychiatric Exam Present: normal affect, normal thought process. Absent: auditory hallucinations, visual hallucinations Assessment and Plan (1) Osteoarthritis of right knee Status: Acute Category: Medical Code(s): M17.11 - Unilateral primary osteoarthritis, right knee (2) Complete tear of anterior cruciate ligament of right knee Status: Acute Category: Medical Code(s): S83.511A - Sprain of anterior cruciate ligament of right knee, initial encounter (3) Tear of medial meniscus of right knee, current Status: Acute Category: Medical Code(s): S83.241A - Other tear of medial meniscus, current injury, right knee, initial encounter (4) History of breast cancer in female Status: Acute Category: Medical Code(s): Z85.3 - Personal history of malignant neoplasm of breast (5) Carotid artery stenosis Status: Chronic Category: Medical Code(s): I65.29 - Occlusion and stenosis of unspecified carotid artery (6) Coronary arteriosclerosis Status: Chronic Category: Medical Code(s): I25.10 - Atherosclerotic heart disease of [place] coronary artery without angina pectoris (7) Hypertensive heart disease Status: Chronic Category: Medical Code(s): I11.9 - Hypertensive heart disease without heart failure (8) Peripheral arterial occlusive disease Status: Chronic Category: Medical Code(s): I77.9 - Disorder of arteries and arterioles,
--- NOTE | 2020-09-06 09:15 | PC.NURSE ---
THERAPY AT BEDSIDE. PT DONE VERY WELL AMBULATING.
--- NOTE | 2020-09-06 09:21 | HMH.PTEV ---
Physical Therapy Evaluation Rehab PT IP Evaluation Start: 09/05/20 13:15 Freq: ONCE Status: Active Protocol: Document 09/06/20 09:17 WILLIE (Rec: 09/06/20 09:21 WILLIE [id number]) Subjective/History History History This is the initial IP PT evaluation for Gila Ruf. Pt is a 50 y/o female admitted to [facility] s/p R TKA. Pt had sx Subjective Subjective pt reports c/o pain in R knee Rehab PT IP Eval Objective Appearance Patient Behavior Appropriate,Cooperative Patient Orientation Person,Place,Time Difficulty following instructions none Speech Pattern Clear Ambulation Patient Able to Ambulate Yes Ambulation Observation IP General Gait Pattern Observation Antalgic Gait,Decrease Weight Bear (R),Decrease Stride Lngth (L) Ambulation Distance (feet) 50 Ambulation Assistive Device Standard Walker Ambulation Ability Contact Guard/Hand Hold Balance Ability to Arise Able, uses arms to help Sitting Balance Steady, safe Standing Balance Steady, wide stance Dynamic Sitting Balance Ability Good Dynamic Standing Balance Ability Fair Transfers Bed Transfer Ability Supervision/Stand by,Contact Guard/Hand Hold Chair Transfer Ability Supervision/Stand by Sit to Stand Bed Transfer Ability Supervision/Stand by Sit to Stand Chair Transfer Ability Supervision/Stand by ROM RLE PT ROM Status ABN Abnormal ROM Comment knee immobilizer MMT RLE PT MMT ABN Abnormal MMT Grade 3-/5 Rehab PT IP prob,goals,plan Problems Date of Evaluation: 09/06/20 PT IP Problems Bed Mobility,Transfers,Gait Rehab Potential Rehab Potential Fair Equipment Needs Assistive Devices Rolling / Wheeled Walker Plan PT Intervention Plan Bed Mobility,Transfers,Gait, Balance,Self care,Safety, Therapeutic Exercise PT Plan Frequency BID Duration LOS Discharge Goals Bed Transfer Ability Supervision/Stand by,Contact Guard/Hand Hold Sit to Stand Chair Transfer Ability Supervision/Stand by,Contact Guard/Hand Hold Ambulation Assistive Device Standard Walker Ambulation Distance (feet) 50 Discharge Plan PT Discharge Plan Pt safe to return home once medically stable - pt would
--- NOTE | 2020-09-06 10:44 | PC.NURSE ---
physical therapy at bedside now.
--- NOTE | 2020-09-06 11:01 | HMH.CNCARD ---
History of Present Illness Consult date: 09/06/20 Requesting physician: Henry Kirkland Consult reason: known to you Chief complaint: knee pain History of present illness: This is a 50-year-old white female who was admitted to the hospital after a total right knee arthroplasty. The patient tolerated the procedure well. She started having knee pain in March 2020 and failed nonsurgical interventions and has underwent total right knee arthroplasty. She has tolerated this well. She states that she has been having some pain intermittently but for the most part it is well controlled. She has been up ambulating and did very well. She does have a history of coronary artery disease, PAD and carotid artery stenosis as well as hypertension. The patient has been seen in our cardiology clinic on an outpatient basis in the past but has not been in our office to follow-up for several years. She denies any chest pain or pressure. She denies any shortness of breath or edema. She denies any fever, chills, nausea, vomiting, diarrhea, PND or orthopnea. Patient states that she has been doing very well from a cardiac standpoint. We did discuss the fact that the patient needs to make sure she follows up in cardiology clinic on an outpatient basis when she is discharged from the hospital. [facility] History I have reviewed the patient's past medical history: Yes Medical History: Reports:: Anxiety, Cancer (breast), Chronic Obstructive Pulmonary Disease (COPD), Coronary Artery Disease, Hypertension Denies:: Diabetes Mellitus Type 1, Diabetes Mellitus Type 2, Internal Pacemaker, MRSA, Seizures *Have you ever received a pneumonia vaccine?: Yes *Have you received a flu vaccine this season?: No Other Medical History: Reports: Arthritis. Denies: Blood Transfusion Reaction Anesthesia experience/problems:: None Laterality Cases: Left: Mastectomy, Bilateral: Carpal Tunnel Release Other Surgeries: Yes: Angioplasty, Cancer Surgery, Tubal Ligation. No: Pacemaker Amputation: No - *Social History Last grade of school completed: 11th or 12th Smoking Status: Current every day smoker Tobacco Type: cigarettes # Packs/Day (cigarettes): 1 Alcohol Intake: never Substance Use Type: denies use *Occupational Status:: disabled Housing: house Household Members: family *Travel in the last 8 weeks: None - Psychiatric History Pschychiatric History:: Reports:: Anxiety Family Hx:: Stroke, Coronary Artery Disease Meds Home Medications Medication Instructions Recorded Confirmed Type rivaroxaban 20 mg tablet 20 mg PO DAILY tab 07/01/17 09/05/20 History venlafaxine 150 mg 150 mg PO DAILY 10/22/19 09/05/20 History capsule,extended release 24 hr naproxen 500 mg tablet 500 mg PO BID PRN #30 tab 07/18/20 09/05/20 Rx trazodone 100 mg tablet 100 mg PO HS PRN #30 tab 07/18/20 09/05/20 Rx albuterol sulfate 90 mcg/actuation 2 puff INHALATION Q4-6H PRN #6.7 g 08/02/20 09/05/20 Rx aerosol inhaler Chlorhexidine Gluconate 1 applic TOPICAL Q5M 09/01/20 09/05/20 History Fluticasone/Umeclidin/Vilanter 1 inh INHALATION DAILY 09/01/20 09/05/20 History [Trelegy Ellipta] Metoprolol Succinate [Metoprolol 25 mg PO DAILY 09/01/20 09/05/20 History Succinate 25mg Tablet*] Mupirocin [Centany] 1 applic TOPICAL BID 09/01/20 09/05/20 History diazePAM [Valium 5mg tablets] 5 mg PO NEEDED PRN 09/01/20 09/05/20 History Oxycodone HCl/Acetaminophen 0.5 tab PO TID PRN 09/05/20 09/05/20 History [Oxycodone-Acetaminophen 5-325] Allergies Allergy/AdvReac Type Severity Reaction Status Date / Time tramadol AdvReac Severe Vomiting Verified 09/05/20 06:26 Exam Vital signs and Labs for Last 24 Hours: Temp Pulse Resp BP Pulse Ox 98.6 F 103 H 20 102/62 L 96 09/06/20 08:00 09/06/20 08:00 09/06/20 08:00 09/06/20 08:00 09/06/20 08:00 Laboratory Results - last 24 hr 09/05/20 08:45: Urine Color Yellow, Urine Appearance Clear, Urine pH 7.0, Ur Specific [place] 1.025, Urine Protein Negat
--- NOTE | 2020-09-06 11:03 | HMH.OTEV ---
OT Inpatient Evaluation Rehab OT IP Evaluation Start: 09/05/20 13:15 Freq: ONCE Status: Complete Protocol: Document 09/06/20 10:[address] [facility] (Rec: 09/06/20 11:[address] [facility] [id number]) Rehab OT IP Assessment Subjective History Pt oriented x 3 on arrival. Pt agreeable to engage in therapy evaluation. Pt was admitted on 09/05/20 after total knee arthroplasty. Pt has a past medical histoyr of Anxiety, CA, COPD, CAD, and HTN. Pt reports prior to surgery she lived at home with her daughter. Pt claims she was independent with all ADLs and IADLs. She also still drove. Subjective I could do anything I wanted until I hurt this knee. Objective Patient Orientation Person,Place,Birthday Upper Extremity Gross ROM WFL Bed Mobility bed mobility-scooting,bed mobility - supine/sit,bed mobility - rolling Assist Level Minimal x 1 (25% assist) Transfer Training Sit/Stand Transfer Assist Level Contact Guard/Hand Hold Performing Toilet Hygiene Ability Standby Assistance Overall Commode/Toilet Transfer Ability Standby Assistance Commode/Toilet Transfer Technique Sit to/from Ambulatory Commode/Toilet Transfer Assistive Grab Bars Devices Rehab OT IP prob,goals,plan Problems Date of Evaluation: 09/06/20 OT IP Problems Bed Mobility,Transfers,Gait, Balance,Self care,Safety Rehab Potential Rehab Potential Good Equipment Needs Assistive Devices Rolling / Wheeled Walker Plan OT intervention Plan Bed Mobility,Transfers,Gait, Balance,Self care,Safety, Therapeutic Exercise OT Plan Frequency BID Duration LOS Discharge Goals Bed Mobility Ability Standby Assistance Sit to Stand Chair Transfer Ability Supervision/Stand by Chair Transfer Ability Supervision/Stand by Chair Transfer Technique Sit to/from Ambulatory Chair Transfer Assistive Devices Rolling Walker Feeding Ability Assist with Tray Set Up Lower Body Dressing Ability Assistance X1 Upper Body Dressing Ability Standby Assistance Bathing Ability Assistance x1 Performing Toilet Hygiene Ability Standby Assistance Overall Commode/Toilet Transfer Ability Sta
--- NOTE | 2020-09-06 11:12 | CA_ITS ---
APPROVED REPORT EXAM: Comprehensive 2D, Doppler, and color-flow Echocardiogram Manager Pet: Livia Ulloa CRT Ht: 5 ft 0 in Wt: 160lbs BSA: 1.70 BP: 102/62 mmHg Indications: COPD, CAD, Hypertension/HDD, SMOKER, JUAN PABLO, PAD, SVC STENTED, L MASTECTOMY, POST-OP KNEE. BREAST CA 2D Dimensions LVOT 1.99 cm (M/F) 1.5-2.5 LA Volume 39.20 mL LA Volume Index 23.10 mL/m2 (M/F) 16-34 M-Mode Dimensions RVDd 2.03 cm (0.9-2.6) LA Diam 3.94 cm (1.9-4.0) LVDd 5.12 cm (3.5-5.7) Ao Diam 3.02 cm (2.0-3.7) LVDs 3.79 cm (3.5-5.7) IVSd 0.96 cm (0.6-1.1) PWd 0.78 cm (0.6-1.1) EF (Teich) 50.70% FS 26.00% EDV (Teich) 124.90 mL ESV (Teich) 61.60 mL LV Diastology E Decel Time 137.00 (160-240 msec) E/A Ratio 1.24 Aortic Valve AI PHT 313.00 ms Mitral Valve MV A Velocity 107.00 (40-130 cm/s) E/A Ratio 1.24 MV Decel. Time 137.00 (160-240 ms) Pulmonary Valve PV Peak Velocity 188.00 (50-150 cm/s) Tricuspid Valve TR P. Velocity 214.00 cm/s RAP Estimate 10.00 mmHg RVSP 28.30 mmHg Left Ventricle Left atrium is mildly enlarged, left ventricle is normal size, there is no concentric left ventricular hypertrophy, visually estimated ejection fraction 55% with no regional wall motion abnormality, diastolic parameters are within normal range. Right Ventricle Right atrium and right ventricle are normal size and contractility. Aortic Valve Aortic valve is minimally thickened and fibrosed, there is no aortic stenosis, there is mild aortic insufficiency. Mitral Valve Mitral valve leaflets are minimally thickened, there is no mitral stenosis, there is moderate mitral regurgitation. Tricuspid Valve Tricuspid grossly normal, there is trace tricuspid regurgitation, tricuspid regurgitation jet velocity is inadequate for calculation of the right ventricular systolic pressure. Pulmonic Valve Pulmonic valve is poorly visualized. Great Vessels Aortic root is normal size. Pericardium No significant pericardial effusion noted. Conclusion 1. Mildly enlarged left atrium, normal left ventricular size, visually estimated ejection fraction 55% with no regional wall motion abnormality, diastolic parameters are within normal range. 2. Thickened and calcified aortic valve without aortic stenosis, there is mild aortic insufficiency. 3. Moderate mitral and trace tricuspid regurgitation, tricuspid regurgitation jet velocity is inadequate for calculation of the right ventricular systolic pressure. 4. No significant pericardial effusion noted. Electronically signed by : Williams Medel, 09/06/2020 21:28:27
--- NOTE | 2020-09-06 11:50 | PC.NURSE ---
dr. yung at bedside
--- NOTE | 2020-09-06 12:45 | PC.NURSE ---
radiology at bedside no for echo.
--- NOTE | 2020-09-06 12:50 | HMH.PHAINT ---
MEDICATION RECONCILIATION COMPLETED ON PATIENT USING EXTERNAL FILL HISTORY FROM PHARMACY. -SHARRON PEREZ, ELISAD
--- NOTE | 2020-09-06 13:29 | PC.NURSE ---
Patient would benefit from walker due to right TKA and her instability with her gait and balance.
--- NOTE | 2020-09-06 13:52 | SW/DCPLANNER ---
ORDERED A STD WALKER FOR THIS PATIENT THAT IS GOING TO DISCHARGE IN THE AM (SAT).... PATIENT IS GOING TO NEED HOME HEALTH PT SERVICES...THIS WILL BE SET UP PRIOR TO PATIENT DISCHARGING HOME...PATIENT [facility] THE AREA THIS PATIENT LIVES IN...
--- NOTE | 2020-09-06 15:08 | P.PN_ITS ---
Subjective Date: 09/06/20 Time: 11:45 Principal diagnosis: S/p total knee arthroplasty, right Interval history: Patient is status post right total knee arthroplasty post op day #1. Patient is lying down on the bed; she says she is doing well and reports no problems. She says she has some knee pain and it is well controlled with as needed pain medication. No history of any distal tingling or numbness. No history of any nausea or vomiting. No history of any cough, chest pain, shortness of breath or palpitations. Patient says she is eating and drinking well. PN: Obj Ex Vital signs: Temp Pulse Resp BP Pulse Ox 98.2 F 100 H 20 122/74 99 09/06/20 12:00 09/06/20 12:00 09/06/20 12:00 09/06/20 12:00 09/06/20 12:00 Narrative: Laboratory Results - last 24 hr 09/06/20 07:00: WBC 7.5 D, RBC 3.44 L, Hgb 10.7 L, Hct 32.9 L, MCV 95.5, MCH 31.1, MCHC 32.6, RDW 14.6, Plt Count 286, MPV 7.5, Neut % (Auto) 64.1, Lymph % (Auto) 26.5, [place] % (Auto) 6.7, Eos % (Auto) 2.4, Baso % (Auto) 0.3, Neut # (Auto) 4.8, Lymph # (Auto) 2.0, [place] # (Auto) 0.5, Eos # (Auto) 0.2, Baso # (Au to) 0.0 09/06/20 07:00: Sodium 136, Potassium 3.8, Chloride 110 H, Carbon Dioxide 24, Anion Gap 5.8, BUN 9, Creatinine 0.80, Estimated Creat Clear 95, Estimated GFR 76, Est GFR ( Amer) 92, Glucose 98, Calcium 7.7 L D Intake & Output 09/04/20 09/05/20 09/06/20 09/07/20 11:59 11:59 11:59 11:59 Intake Total 1050 / 1050 Output Total 800 / 800 Balance 250 / 250 Exam General appearance: alert, active, awake, no acute distress Cardiovascular: regular rate & rhythm, normal peripheral pulses Respiratory: No respiratory distress noted, speaks in full sentences ABD: soft and non tender Neuro: alert, awake, oriented x 3 Psych Appropriate mood and affect for the situation On examination of the lower extremities the limb lengths are equal. On examination of the right knee the dressings are clean, dry and intact. Calf is soft and compressible. Distal pulses are 1+. Capillary refill is brisk. Intact sensation to light touch throughout. She is actively moving the ankle, foot and the toes. She is not able to actively straight leg raise. - Urinary Catheter Management Landeros Cath placed during this visit: no Progress Note: A&P (1) Coronary arteriosclerosis Status: Chronic (2) Osteoarthritis of right knee Status: Acute (3) Complete tear of anterior cruciate ligament of right knee Status: Acute (4) Tear of medial meniscus of right knee, current Status: Acute (5) History of breast cancer in female Status: Acute (6) Carotid artery stenosis Status: Chronic (7) Hypertensive heart disease Status: Chronic (8) Peripheral arterial occlusive disease Status: Chronic (9) Anxiety Status: Chronic Assessment and Plan for All Diagnoses:: I have reviewed the clinical findings and progress with the patient. Patient is seen by physical therapy and recommend continuation of standard postoperative rehab for the total knee replacement. Use knee immobilizer when weightbearing and walking until she regains full quadriceps control and is able to actively straight leg raise. Continue DVT prophylaxis. Discontinue IV fluids. Case management consult regarding discharge planning. Continue medical management as per Dr. Alvarado.
--- NOTE | 2020-09-06 16:15 | PC.NURSE ---
PATIENT HAS BEEN A/O X4 THIS SHIFT. HAS RESTED ON AND OFF MOST OF THE DAY. PATIENT HAS BEEN UP WITH THERAPY WALKING TO AND FROM BATHROOM MULTIPLE TIMES TODAY. PT DOES VERY WELL WITH STAND BY ASSIST. REPORTS PAIN 11/29, BUT IS WELL CONTROLLED WITH PO PAIN MEDS EVERY 6 HOURS ROTATED PER JUN. PULSES 2+ AND CAP REFILL <3. RIGHT KNEE ELEVATED ON PILLOW AND POLAR PACK IN PLACE. DRESSING OVER INCISION- C/D/I. MD TO REMOVE TOMORROW. PT DOES WEAR OXYGEN PRN THROUGHOUT THE DAY (SHE WEARS THIS AT HOME). DENIES SOB. LUNGS CTA AND BOWEL HYPOACTIVE X4. SOME FACIAL SWELLING NOTED TO RIGHT SIDE. NO CURRENT NEEDS VOICED.
--- NOTE | 2020-09-07 04:10 | PC.NURSE ---
patient has done well this shift. Pt. has ambulated, standby assist, tolerated well. pain well controlled with prn medication. Leg immobilizer on when ambulatory. Polar pack in place when in bed and leg elevated on pillow under ankle. IV patent in R hand. Lungs ctab and bowels active x4 quadrants. Pt A&OX4. Pt. is tolerating reg diet well. Call faria within reach, safety precautions taken. Will continue to monitor.
[2020-09-07 04:55] VITALS: BP 110/66; PULSE 99; RESP 18; TEMP 36.6; O2SAT 97
[2020-09-07 08:00] VITALS: BP 110/73; PULSE 105; RESP 20; TEMP 36.9; O2SAT 93
--- NOTE | 2020-09-07 09:15 | PC.NURSE ---
DE LA CRUZ AT BEDSIDE- CHANGING DRESSING. NO S//S OF INFECTION NOTED.
--- NOTE | 2020-09-07 09:24 | HMH.CONFU ---
Internal Medicine - PN: Subj *Date: 09/07/20 *Time: 13:04 Interval history: 50-year-old female patient lying in bed resting quietly with eyes closed, awakens to verbal stimuli, daughter in law at bedside in recliner. Patient reports pain is at a tolerable level states she is ready to be discharged home today, discussed with her importance of physical therapy and discharge today is probable with Ortho having final say. Exam Vital signs and Labs for Last 24 Hours: Temp Pulse Resp BP Pulse Ox 98.4 F 105 H 20 110/73 93 L 09/07/20 08:00 09/07/20 08:00 09/07/20 08:00 09/07/20 08:00 09/07/20 08:00 I & O for Last 24 hours: Intake & Output 09/04/20 09/05/20 09/06/20 09/07/20 23:59 23:59 23:59 23:59 Intake Total 1050 / 1050 0 / 0 240 / 240 Output Total 100 / 100 700 / 700 Balance 950 / 950 -700 / -700 240 / 240 Microbiology Reports for the Last 24 Hours: Microbiology 09/05/20 08:45 Urine,Catheterized Urine Culture - Preliminary NO GROWTH AFTER 24 HOURS - Constitutional no acute distress - *Routine HEENT Exam Head: Present: normocephalic Eye: Present: EOMI ENT: Present: mucous membranes moist - *Routine Neck Exam Present: trachea midline. Absent: tracheal deviation - *Routine Respiratory Exam Present: CTA bilaterally. Absent: accessory muscle use - *Routine Cardiovascular Exam Present: RRR - *Routine Abdominal Exam Present: soft, normoactive bowel sounds. Absent: tenderness, rigid - *Routine Extremities Exam Present: pulses intact. Absent: cyanosis, clubbing, full ROM, calf tenderness - *Routine Skin Exam Present: dry, warm, wounds. Absent: cyanosis, erythema Comments: Drsg R Knee C/D/I - *Routine Neurological Exam Present: alert, oriented X3. Absent: motor deficit, pronator drift - Routine Psychiatric Exam Present: normal affect, normal thought process. Absent: auditory hallucinations, visual hallucinations Assessment and Plan (1) Coronary arteriosclerosis Status: Chronic Category: Medical Code(s): I25.10 - Atherosclerotic heart disease of [place] coronary artery without angina pectoris (2) Osteoarthritis of right knee Status: Acute Category: Medical Code(s): M17.11 - Unilateral primary osteoarthritis, right knee (3) Complete tear of anterior cruciate ligament of right knee Status: Acute Category: Medical Code(s): S83.511A - Sprain of anterior cruciate ligament of right knee, initial encounter (4) Tear of medial meniscus of right knee, current Status: Acute Category: Medical Code(s): S83.241A - Other tear of medial meniscus, current injury, right knee, initial encounter (5) History of breast cancer in female Status: Acute Category: Medical Code(s): Z85.3 - Personal history of malignant neoplasm of breast (6) Carotid artery stenosis Status: Chronic Category: Medical Code(s): I65.29 - Occlusion and stenosis of unspecified carotid artery (7) Hypertensive heart disease Status: Chronic Category: Medical Code(s): I11.9 - Hypertensive heart disease without heart failure (8) Peripheral arterial occlusive disease Status: Chronic Category: Medical Code(s): I77.9 - Disorder of arteries and arterioles, unspecified (9) Anxiety Status: Chronic Category: Medical Code(s): F41.9 - Anxiety disorder, unspecified - Assessment and plan all Dx Assessment and Plan for all problems:: Rounded with Dr. Peralta, all orders per Dr. Peralta: 1. Concurrent continue current medical regimen
[2020-09-07 10:03] VITALS: BMI 31.4
[2020-09-07 12:00] VITALS: BP 108/62; PULSE 96; RESP 20; TEMP 36.7; O2SAT 95
--- NOTE | 2020-09-07 12:39 | HMH.ORTHPN ---
Subjective Date: 09/07/20 Time: 09:00 Principal diagnosis: S/p total knee arthroplasty, right Interval history: Patient is status post right total knee arthroplasty post op day #2. Patient says she is doing well and reports no problems. She reports little bit of knee pain and says it is well-controlled with as needed pain medication. She says she is eating and drinking well. No history of any nausea or vomiting. No history of any cough, chest pain, shortness of breath or palpitations. No history of any distal tingling or numbness. PN: Obj Ex Vital signs: Temp Pulse Resp BP Pulse Ox 98.1 F 96 H 20 108/62 L 95 09/07/20 12:00 09/07/20 12:00 09/07/20 12:00 09/07/20 12:00 09/07/20 12:00 Narrative: Exam General appearance: alert, active, awake, no acute distress Cardiovascular: regular rate & rhythm, normal peripheral pulses Respiratory: No respiratory distress noted, speaks in full sentences ABD: soft and non tender Neuro: alert, awake, oriented x 3 Psych Appropriate mood and affect for the situation On examination of the lower extremities the limb lengths are equal. On examination of the right knee the dressings are clean, dry and intact. I have changed the surgical dressings and the incision is clean and healthy. No soakage of the dressings noted. There is no bleeding, erythema or induration. No signs of infection or other complications are noted. There is minimal swelling and ecchymosis around the knee as to be expected at this stage. Knee range of movements is 5 to 60 degrees of flexion. Patient has not yet regained good quadriceps activation and is not able to actively straight leg raise. Calf is soft, compressible and nontender. Distal pulses are 1+. Capillary refill is brisk. Sensation is intact to light touch throughout. Patient is actively moving the ankle, foot and the toes. No signs of DVT noted. - Urinary Catheter Management Landeros Cath placed during this visit: no Progress Note: A&P (1) Coronary arteriosclerosis Status: Chronic (2) Osteoarthritis of right knee Status: Acute (3) Complete tear of anterior cruciate ligament of right knee Status: Acute (4) Tear of medial meniscus of right knee, current Status: Acute (5) History of breast cancer in female Status: Acute (6) Carotid artery stenosis Status: Chronic (7) Hypertensive heart disease Status: Chronic (8) Peripheral arterial occlusive disease Status: Chronic (9) Anxiety Status: Chronic Assessment and Plan for All Diagnoses:: I have reviewed the clinical findings and progress with the patient. She is doing well and having no postop problems. Advised her to continue physical therapy; use knee immobilizer when weightbearing and walking until she regains full quadriceps control and is able to actively straight leg raise. Continue DVT prophylaxis for 2 weeks postop. Patient is cleared for discharge and to be discharged home today to home with home health. Continue medical management as per Dr. Kirkland.
--- NOTE | 2020-09-07 12:48 | HMH.DCSUM ---
General - General Admission date:: 09/05/20 Discharge date: 09/07/20 HPI HPI: Patient is 50 year old female admitted to hospital on 09/05/2020 after an uneventful right total knee arthroplasty. She developed right knee pain following an injury in March 2020. Evaluation including x-rays and MRI scan of the right knee showed degenerative arthritis, medial meniscal tear and ACL tear. She has been having chronic right knee pain which has failed to respond satisfactorily to nonsurgical management. Following evaluation in the office, patient elected to proceed with a total knee arthroplasty. X-rays of her knee joint showed moderate degenerative changes over the medial and patellofemoral compartments. The pain increases with walking, or standing for too long. Total knee arthroplasty is indicated to reduce the risk of falls, improve her pain and mobility and quality of life. The surgical and nonsurgical alternatives were discussed in detail with the patient as well as the risks and benefits of the surgery. Please refer to my office note for full details. Hospital Course Hospital Course: Patient underwent an uncomplicated straightforward primary right total knee arthroplasty on 09/05/2020. Following surgery patient was admitted to hospital and progressed well without any complications. The postoperative check x-ray was satisfactory with good alignment and fixation of the components. Patient progressed rapidly with physical therapy and was able to mobilize using a walker. After 2 days of hospital stay for observation, patient was discharged to home with home health on 09/07/2020. At the time of discharge patient has not yet regained good quadriceps control and is not able to actively straight leg raise. Patient has minimal pain and it is well controlled with as needed oral medication. The incision is healthy and healing well. No signs of any erythema, induration or discharge noted. The neurovascular status in both lower extremities is intact. Pedal pulses 2+ bilaterally and fully sensate distally. No clinical evidence of DVT noted. Patient was cleared for discharge by physical therapy. On the day of discharge, the patient has been stable. Patient's vital signs have been stable throughout and patient is afebrile at the time of discharge. She is being discharged home with home health services. Objective Vital signs: Temp Pulse Resp BP Pulse Ox 98.1 F 96 H 20 108/62 L 95 09/07/20 12:00 09/07/20 12:00 09/07/20 12:00 09/07/20 12:09/07/20 12:00 no acute distress, obese - *Routine HEENT Exam Head: Present: normocephalic Eye: Present: EOMI, PERRL ENT: Present: mucous membranes moist - *Routine Neck Exam Present: supple, trachea midline - *Routine Respiratory Exam Present: CTA bilaterally - *Routine Cardiovascular Exam Present: RRR - *Routine Abdominal Exam Present: soft, normoactive bowel sounds, obese. Absent: tenderness - *Routine Extremities Exam Comments: On examination of the lower extremities the limb lengths are equal. On examination of the right knee the dressings are clean, dry and intact. I have changed the surgical dressings and the incision is clean and healthy. No soakage of the dressings noted. There is no bleeding, erythema or induration. No signs of infection or other complications are noted. There is minimal swelling and ecchymosis around the knee as to be expected at this stage. Knee range of movements is 5 to 60 degrees of flexion. Patient has not yet regained good quadriceps activation and is not able to actively straight leg raise. Calf is soft, compressible and nontender. Distal pulses are 1+. Capillary refill is brisk. Sensation is intact to light touch throughout. Patient is actively moving the ankle, foot and the toes. No signs of DVT noted. - *Routine Skin Exam Present: warm. Absent: rash - *Routine Neurological Exam Present: alert, oriented X3, moving all extr
--- NOTE | 2020-09-08 13:46 | SW/DCPLANNER ---
Home health services have been set up with [facility] for this patient. I have spoke with Opal whom confirmed services will not begin till Saturday the 24t. Patient is fine with services beginning on the and prefers [facility].
== END 2020-09-07 13:20 | disposition home health service (06) ==
LOC: OB 09:58
PROVIDERS: Admitting Provider Orthopaedic Surgery; PCP Family Medicine; Visit Provider Orthopaedic Surgery
PROC: (CPT 27447; principal; 2020-09-05 07:30)
DX: M17.11 Unilateral primary osteoarthritis, right knee (principal); S83.511A Sprain of anterior cruciate ligament of right knee, initial encounter; S83.241A Other tear of medial meniscus, current injury, right knee, initial encounter; J44.9 Chronic obstructive pulmonary disease, unspecified; I25.10 Atherosclerotic heart disease of native coronary artery without angina pectoris; Z20.822 Contact with and (suspected) exposure to COVID-19; F17.210 Nicotine dependence, cigarettes, uncomplicated; Z85.3 Personal history of malignant neoplasm of breast; I77.9 Disorder of arteries and arterioles, unspecified; Z79.899 Other long term (current) drug therapy; I65.29 Occlusion and stenosis of unspecified carotid artery; Z99.81 Dependence on supplemental oxygen; F41.9 Anxiety disorder, unspecified; I11.0 Hypertensive heart disease with heart failure; I73.9 Peripheral vascular disease, unspecified
CPT/HCPCS: 27447; 36415; 71045; 73560; 80048; 81001; 81025; 85025; 87086; 87581; 87633; 87798; 93306; 96374; 97116; 97161; 97166; C1776; G0378; J0131; J3370

== ENCOUNTER → 2020-09-20 14:03 | Outpatient (CLI) | payer MEDICARE, BC, MEDICAID, SELFPAY ==
--- NOTE | 2020-09-20 14:10 | XR_ITS ---
PROCEDURE: XR KNEE RT 2V CLINICAL INDICATION: sp RT TKA, dos 09/05/20 Follow-up knee replacement COMPARISON: CR XR KNEE RT 4V from 05/17/2020 CR XR KNEE RT 2V from 09/05/2020 FINDINGS: Status post total knee replacement with good alignment. No fracture or dislocation. No evidence of orthopedic complication. No lytic or blastic change. Previously noted soft tissue gas is no longer apparent. Other findings:None. IMPRESSION: No acute findings. Status post total knee replacement with good alignment and no acute finding Dictated by: Catalino Watkins MD 09/20/2020 14:48 Catalino Watkins MD in [place] 09/20/2020 14:48
== END ==
PROVIDERS: PCP Family Medicine; Visit Provider Orthopaedic Surgery
DX: Z09 Encounter for follow-up examination after completed treatment for conditions other than malignant neoplasm (principal); M25.561 Pain in right knee
CPT/HCPCS: 73560

== ENCOUNTER → 2020-10-21 14:24 | Outpatient (CLI) | payer MEDICARE, MEDICAID, SELFPAY ==
[2020-10-21 14:49] LABS: Basophils % 0.5 % (0.1-2.0); Eosinophils # 0.1 K/mm3 (0.0-0.4); Eosinophils % 1.7 % (0.1-12.0); Hematocrit 35.6 % (37.0-47.0); Hemoglobin 11.9 g/dL (12.2-16.2); Lymphocytes # 1.7 K/mm3 (0.7-4.5); Lymphocytes % 23.1 % (10-50); Mean Corpuscular HGB Conc 33.4 g/dL (31.8-35.4); Mean Corpuscular Hemoglobin 31.3 pg (27.0-31.2); Mean Corpuscular Volume 93.6 fl (81-99); Mean Platelet Volume 7.9 fl (7.4-10.4); Monocytes # 0.5 K/mm3 (0.1-1.0); Monocytes % 6.1 % (1.7-9.3); Neutrophils # 5.2 K/mm3 (1.8-7.8); Neutrophils % 68.5 % (37.0-80.0); Platelet Count 365 K/mm3 (142-424); Red Cell Distribution Width 15.1 % (11.5-17.5); White Blood Count 7.5 K/mm3 (4.8-10.8)
[2020-10-21 16:12] LABS: Erythrocyte Sedimentation Rate 86 mm/hr (0-30)
== END ==
PROVIDERS: Visit Provider Orthopaedic Surgery
DX: Z96.651 Presence of right artificial knee joint (principal); M25.561 Pain in right knee
CPT/HCPCS: 36415; 85025; 85651; 86140; 87070; 87075; 87205

== ENCOUNTER → 2020-11-08 09:58 | Outpatient (CLI) | payer MEDICARE, MEDICAID, SELFPAY | PROVIDERS: Visit Provider Orthopaedic Surgery | DX: M25.561 Pain in right knee (principal); Z96.651 Presence of right artificial knee joint | CPT/HCPCS: 87070; 87075; 87077; 87186; 87205 ==

== ENCOUNTER 2020-11-13 01:12 | Emergency (ER) | payer MEDICARE, MEDICAID, SELFPAY ==
[2020-11-13 01:27] VITALS: BP 151/94; PULSE 112; RESP 16; TEMP 37.1; O2SAT 99; BMI 31.2
--- NOTE | 2020-11-13 02:28 | HMH.EDSKAF ---
ED Disposition Clinical Impression: History of total right knee replacement (TKR) Abscess of skin or subcutaneous tissue Qualifiers: Site of cutaneous abscess: extremity Site of cutaneous abscess of extremity: lower extremity Laterality: right Qualified Code(s): L02.415 - Cutaneous abscess of right lower limb Disposition: Home, Self-Care Condition on Discharge: Good Instructions: DI for Skin Abscess Additional Instructions: use meds and see dr yung for follow up Prescriptions: clindamycin HCL [Clindamycin HCl] 300 mg PO TID 10 Days #30 cap Transmission Status: Pending to [facility] #[id number] Referrals: Henry Kirkland MD [Primary Care Provider] - Julián Yung MD [Staff Physician] - - Critical Care Critical Care Time: No Attestation: On 11/13/20, the high probability of a clinically significant, sudden or life threatening deterioration of the following system(s) required my full and direct attention, intervention and personal management. The time I documented below is in addition to time spent performing reported procedures but includes the following listed in this critical care notation. Medical Decision Making - Medical Records Medical records reviewed: Yes: I reviewed the patient's medical records. - Robert Inquiry Pt receiving controlled substance: No Vital Signs: 11/13/20 01:27 11/13/20 03:59 11/13/20 04:00 Temperature 98.7 F Temperature Source Oral Pulse Rate 96 H 95 H Pulse Rate [Right Brachial] 112 H Respiratory Rate 16 18 18 Blood Pressure 134/88 134/88 Blood Pressure [Right Arm] 151/94 H Blood Pressure Mean 103 Blood Pressure Mean [Right Arm] 113 Blood Pressure Source [Right Arm] Automatic Cuff Blood Pressure Position [Right Arm] Sitting 02 Sat by Pulse Oximetry 99 95 95 Oxygen Delivery Method Room Air 11/13/20 04:30 Temperature Temperature Source Pulse Rate 97 H Pulse Rate [Right Brachial] Respiratory Rate 18 Blood Pressure 130/88 Blood Pressure [Right Arm] Blood Pressure Mean 99 Blood Pressure Mean [Right Arm] Blood Pressure Source [Right Arm] Blood Pressure Position [Right Arm] 02 Sat by Pulse Oximetry 95 Oxygen Delivery Method - Lab Data Lab results reviewed: Yes: I reviewed the patient's lab results. Lab Results 11/13/20 02:26: Sodium 142, Potassium 3.9, Chloride 109 H, Carbon Dioxide 25, Anion Gap 11.9, BUN 8, Creatinine 0.80, Estimated Creat Clear 95, Estimated GFR 76, Est GFR ( Amer) 92, Glucose 72 L, Calcium 8.7, Total Bilirubin 0.5, AST 27, ALT 12, Alkaline Phosphatase 84, C-Reactive Protein 42.9 H, Total Protein 8.0, Albumin 4.0, Globulin 4.0 H, Albumin/Globulin Ratio 1.0 L 11/13/20 02:26: Lactate 1.9 11/13/20 02:26: Procalcitonin 0.045 11/13/20 02:26: WBC 11.2 H, RBC 3.69 L, Hgb 11.1 L, Hct 34.8 L, MCV 94.4, MCH 30.1, MCHC 31.9, RDW 15.9, Plt Count 269, MPV 8.0, Neut % (Auto) 73.1, Lymph % (Auto) 19.6, [place] % (Auto) 4.7, Eos % (Auto) 2.1, Baso % (Auto) 0.4, Neut # (Auto) 8.2 H, Lymph # (Auto) 2.2, [place] # (Auto) 0.5, Eos # (Auto) 0.2, Baso # (Auto) 0.0 Result diagrams: 11/13/20 02:26 11/13/20 02:26 Orders (Tests/Meds): ED MEDICATIONS Generic Name Dose Route Start Last Admin Trade Name Freq PRN Reason Stop Dose Admin Sodium Chloride 1,000 mls @ 999 mls/hr 11/13/20 02:30 11/13/20 02:31 Sod Chlor 0.9% 1000ml Bag IV 11/13/20 03:30 999 mls/hr .Q1H1M MIGUEL Administration Clindamycin Phosphate 900 mg/ 106 mls @ 100 mls/hr 11/13/20 05:35 Sodium Chloride IV 11/13/20 06:38 ONCE ONE Protocol Discontinued Medications Generic Name Dose Route Start Last Admin Trade Name Freq PRN Reason Stop Dose Admin Sodium Chloride 500 mls @ 999 mls/hr 11/13/20 01:45 11/13/20 02:31 Sod Chlor 0.9% 1000ml Bag IV 11/13/20 02:15 Not Given .Q31M MIGUEL Morphine Sulfate 4 mg 11/13/20 02:28 11/13/20 02:31 Morphine 4mg/Ml Syringe IV 11/13/20 02:29 4 mg ONCE ONE Administration Ondansetron
--- NOTE | 2020-11-13 02:29 | CT_ITS ---
PROCEDURE INFORMATION: Exam: CT Right Lower Extremity Without Contrast, Knee Exam date and time: 11/13/2020 2:29 AM Age: 50 years old Clinical indication: Right; Prior surgery; Surgery date: 1-6 months; Surgery type: 09/05/20, total knee replacement; Patient HX: Pain, swelling, redness, drainage TECHNIQUE: Imaging protocol: CT of the Right lower extremity without contrast was performed. Exam focused on the knee. 3D rendering (Not supervised by radiologist): MIP and/or 3D reconstructed images were created by the technologist. Radiation optimization: All CT scans at this facility use at least one of these dose optimization techniques: automated exposure control; mA and/or kV adjustment per patient size (includes targeted exams where dose is matched to clinical indication); or iterative reconstruction. COMPARISON: MR KNEE RT WO CON 04/28/2020 10:48 AM FINDINGS: Bones/joints: There has been a total knee arthroplasty which appears intact with anatomic alignment. There is a moderate hemarthrosis. Soft tissues: There is inflammatory stranding in the superficial soft tissues anterior and lateral to the knee. Surgical wound in the soft tissues anterior to the knee . IMPRESSION: Status post total knee arthroplasty with a moderate hemarthrosis and possible connection to the skin incision if there is bloody drainage.
[2020-11-13 02:39] LABS: Basophils % 0.4 % (0.1-2.0); Eosinophils # 0.2 K/mm3 (0.0-0.4); Eosinophils % 2.1 % (0.1-12.0); Hematocrit 34.8 % (37.0-47.0); Hemoglobin 11.1 g/dL (12.2-16.2); Lymphocytes # 2.2 K/mm3 (0.7-4.5); Lymphocytes % 19.6 % (10-50); Mean Corpuscular HGB Conc 31.9 g/dL (31.8-35.4); Mean Corpuscular Hemoglobin 30.1 pg (27.0-31.2); Mean Corpuscular Volume 94.4 fl (81-99); Monocytes # 0.5 K/mm3 (0.1-1.0); Monocytes % 4.7 % (1.7-9.3); Neutrophils # 8.2 K/mm3 (1.8-7.8); Neutrophils % 73.1 % (37.0-80.0); Platelet Count 269 K/mm3 (142-424); Red Blood Count 3.69 M/mm3 (4.20-5.40); Red Cell Distribution Width 15.9 % (11.5-17.5); White Blood Count 11.2 K/mm3 (4.8-10.8)
[2020-11-13 02:50] LABS: Chloride 109 mmol/L (98-107); Potassium 3.9 mmoL/L (3.5-5.1); Sodium 142 mmol/L (136-145)
[2020-11-13 02:53] LABS: Alanine Aminotransferase 12 U/L (12-78); Alkaline Phosphatase 84 U/L (38-126); Anion Gap 11.9 mEq/L (5-15); Aspartate Amino Transferase 27 U/L (14-36); Bilirubin,Total 0.5 mg/dl (0.2-1.3); Blood Urea Nitrogen 8 mg/dl (7-17); Carbon Dioxide 25 mmol/L (22.0-30.0); Creatinine Clearance Estimated 95 mL/min (50-200); Estimated Glomerular Filt Rate 76 ml/min (>60); GFR (African American) 92 ML/MIN (>60)
[2020-11-13 02:54] LABS: Calcium 8.7 mg/dl (8.4-10.2); Glucose 72 mg/dl (74-100); Lactic Acid 1.9 mmol/L (0.7-2.1)
[2020-11-13 02:59] LABS: C-Reactive Protein 42.9 mg/L (0-4)
[2020-11-13 03:11] LABS: Procalcitonin 0.045 ng/mL (0.0-2.0)
[2020-11-13 03:59] VITALS: BP 134/88; PULSE 96; RESP 18; O2SAT 95
[2020-11-13 04:00] VITALS: BP 134/88; PULSE 95; RESP 18; O2SAT 95
[2020-11-13 04:30] VITALS: BP 130/88; PULSE 97; RESP 18; O2SAT 95
--- NOTE | 2020-11-13 05:30 | PC.NURSE ---
Dr Peralta spoke with Dr Kenney
[2020-11-13 06:15] VITALS: BP 129/73; PULSE 83; RESP 18; TEMP 37.1; O2SAT 95
== END 2020-11-13 06:17 | disposition home or self-care (01) ==
PROVIDERS: Emergency Provider Emergency Medicine; PCP Family Medicine
DX: L02.415 Cutaneous abscess of right lower limb (principal); Z96.651 Presence of right artificial knee joint; I10 Essential (primary) hypertension; F41.9 Anxiety disorder, unspecified; Z79.899 Other long term (current) drug therapy; F17.210 Nicotine dependence, cigarettes, uncomplicated
CPT/HCPCS: 73700; 80053; 83605; 84145; 85025; 86140; 87040; 87070; 87077; 87186; 87205; 96365; 96366; 96375; 99284; J2405

== ENCOUNTER → 2020-11-17 10:28 | Outpatient (CLI) | payer MEDICARE, MEDICAID, SELFPAY ==
[2020-11-17 10:51] LABS: Basophils % 0.4 % (0.1-2.0); Eosinophils # 0.3 K/mm3 (0.0-0.4); Eosinophils % 3.7 % (0.1-12.0); Hematocrit 37.2 % (37.0-47.0); Lymphocytes # 1.9 K/mm3 (0.7-4.5); Lymphocytes % 24.3 % (10-50); Mean Corpuscular HGB Conc 32.2 g/dL (31.8-35.4); Mean Corpuscular Hemoglobin 30.3 pg (27.0-31.2); Mean Corpuscular Volume 94.2 fl (81-99); Mean Platelet Volume 8.3 fl (7.4-10.4); Monocytes # 0.4 K/mm3 (0.1-1.0); Monocytes % 5.2 % (1.7-9.3); Neutrophils # 5.1 K/mm3 (1.8-7.8); Neutrophils % 66.5 % (37.0-80.0); Platelet Count 437 K/mm3 (142-424); Red Blood Count 3.95 M/mm3 (4.20-5.40); Red Cell Distribution Width 15.8 % (11.5-17.5); White Blood Count 7.7 K/mm3 (4.8-10.8)
[2020-11-17 11:01] LABS: C-Reactive Protein 14.9 mg/L (0-4)
[2020-11-17 11:02] LABS: D-Dimer 1.12 ug/mL (0.0-0.5)
[2020-11-17 11:14] LABS: Erythrocyte Sedimentation Rate 64 mm/hr (0-30)
[2020-11-20 18:46] LABS: Cotinine >1000.0 ng/mL (.); Nicotine 795.7 ng/mL (.)
== END ==
PROVIDERS: Visit Provider Orthopaedic Surgery
DX: F17.210 Nicotine dependence, cigarettes, uncomplicated; Z96.651 Presence of right artificial knee joint; L02.91 Cutaneous abscess, unspecified; Z79.899 Other long term (current) drug therapy
CPT/HCPCS: 36415; 80323; 85025; 85378; 85651; 86140; G0480

== ENCOUNTER → 2020-11-23 09:11 | Outpatient (CLI) | payer MEDICARE, MEDICAID, SELFPAY ==
[2020-11-23 09:23] LABS: Basophils % 0.6 % (0.1-2.0); Eosinophils # 0.3 K/mm3 (0.0-0.4); Eosinophils % 4.8 % (0.1-12.0); Hematocrit 39.8 % (37.0-47.0); Hemoglobin 13.1 g/dL (12.2-16.2); Lymphocytes # 2.2 K/mm3 (0.7-4.5); Lymphocytes % 35.7 % (10-50); Mean Corpuscular Hemoglobin 31.1 pg (27.0-31.2); Mean Corpuscular Volume 94.2 fl (81-99); Mean Platelet Volume 8.1 fl (7.4-10.4); Monocytes # 0.3 K/mm3 (0.1-1.0); Monocytes % 5.3 % (1.7-9.3); Neutrophils # 3.3 K/mm3 (1.8-7.8); Neutrophils % 53.5 % (37.0-80.0); Platelet Count 419 K/mm3 (142-424); Red Blood Count 4.22 M/mm3 (4.20-5.40); Red Cell Distribution Width 16.1 % (11.5-17.5); White Blood Count 6.2 K/mm3 (4.8-10.8)
[2020-11-23 09:38] LABS: C-Reactive Protein 6.6 mg/L (0-4)
[2020-11-23 09:39] LABS: D-Dimer 0.81 ug/mL (0.0-0.5)
[2020-11-23 09:45] LABS: Erythrocyte Sedimentation Rate 26 mm/hr (0-30)
== END ==
PROVIDERS: Visit Provider Orthopaedic Surgery
DX: L02.91 Cutaneous abscess, unspecified (principal); Z96.651 Presence of right artificial knee joint
CPT/HCPCS: 36415; 85025; 85378; 85651; 86140

== ENCOUNTER → 2020-11-30 07:59 | Outpatient (CLI) | payer MEDICARE, MEDICAID, SELFPAY | PROVIDERS: Visit Provider Orthopaedic Surgery | DX: Z01.812 Encounter for preprocedural laboratory examination (principal); Z20.822 Contact with and (suspected) exposure to COVID-19; L02.91 Cutaneous abscess, unspecified | CPT/HCPCS: 36415; 81001; 85025; 85651; 86140; U0003 ==

== ENCOUNTER → 2020-11-30 08:17 | Outpatient (CLI) | payer MEDICARE, MEDICAID, SELFPAY ==
--- NOTE | 2020-11-30 08:26 | XR_ITS ---
PROCEDURE: XR KNEE RT 3V CLINICAL INDICATION: s/p RT TKA Follow-up surgery COMPARISON: CR XR KNEE RT 4V from 05/17/2020 CR XR KNEE RT 2V from 09/05/2020 CR XR KNEE RT 2V from 09/20/2020 FINDINGS: Status post total knee replacement with good alignment. No evidence of orthopedic complication. No fracture or dislocation. Other findings:None. IMPRESSION: S/p total knee rib arthroplasty with good alignment Dictated by: Catalino Watkins MD 11/30/2020 14:46 Catalino Watkins MD in [place] 11/30/2020 14:46
[2020-11-30 08:30] LABS: Appearance,Urine CLEAR (Clear); Bilirubin,Urine Negative (Negative); Blood, Urine Negative (Negative); Color,Urine YELLOW (Yellow); Glucose,Urine (UA) Negative (Negative); Ketones,Urine TRACE (Negative); Leukocyte Esterase,Urine Negative (Negative); Microscopic, Urine URINE MICROSCOPIC (MICROSCOPIC); Nitrate,Urine Negative (Negative); Protein,Urine Negative (Negative); Specific Gravity, Urine >= 1.030 (1.005-1.030)
[2020-11-30 08:31] LABS: Basophils % 0.6 % (0.1-2.0); Eosinophils # 0.3 K/mm3 (0.0-0.4); Eosinophils % 5.5 % (0.1-12.0); Hemoglobin 11.8 g/dL (12.2-16.2); Lymphocytes # 2.1 K/mm3 (0.7-4.5); Lymphocytes % 43.1 % (10-50); Mean Corpuscular HGB Conc 32.6 g/dL (31.8-35.4); Mean Corpuscular Hemoglobin 30.4 pg (27.0-31.2); Mean Corpuscular Volume 93.3 fl (81-99); Mean Platelet Volume 8.2 fl (7.4-10.4); Monocytes # 0.3 K/mm3 (0.1-1.0); Monocytes % 5.6 % (1.7-9.3); Neutrophils # 2.2 K/mm3 (1.8-7.8); Neutrophils % 45.1 % (37.0-80.0); Platelet Count 174 K/mm3 (142-424); Red Blood Count 3.86 M/mm3 (4.20-5.40); Red Cell Distribution Width 16.2 % (11.5-17.5); White Blood Count 4.8 K/mm3 (4.8-10.8)
[2020-11-30 08:43] LABS: RBC,Urine Occasional #/hpf (0-3); Squamous Epithelial Cell,Urine Occasional #/hpf (0-5)
[2020-11-30 09:02] LABS: Erythrocyte Sedimentation Rate 59 mm/hr (0-30)
== END ==
PROVIDERS: PCP Family Medicine; Visit Provider Orthopaedic Surgery
DX: Z96.651 Presence of right artificial knee joint (principal); Z20.822 Contact with and (suspected) exposure to COVID-19; L02.91 Cutaneous abscess, unspecified
CPT/HCPCS: 36415; 73562; 81001; 85025; 85651; 86140; U0003

== ENCOUNTER 2020-12-12 14:30 | Outpatient (RCR) | payer MEDICARE, MEDICAID, SELFPAY ==
--- NOTE | 2020-11-14 14:43 | HMH.PTOPWND ---
Rehab Outpt Wound Evaluation Rehab OP Wound Evaluation Start: 11/14/20 14:32 Freq: Status: Active Protocol: Document 11/14/20 14:33 SANDRADANK (Rec: 11/14/20 14:43 PWDANK [id number]) Electronically Signed By Robert Amor, MOISÉS 11/14/20 14:33 Subjective/History History History THis is the initial wound clinic evaluation for Gila Arias. Pt is a 50 y/o female referred to wound clinic for non-healing surgical wound. Pt reports she had R TKA in August and began noticing a black spot in September. Pt now reports she has a new pin hole wound opening up higher on the incision. Pt reports she is not diabetic, does not have known circulation issues but is a heavy smoker. Subjective Subjective Pt does report knee is sore Wound Eval Wound Left Upper Knee Wound Type Incision Wound Length (cm) 0.3 Wound Width (cm) 0.3 Wound Depth (cm) 0.5 Wound Margins Description Roll Under Edges Surrounding Tissue Appearance [place] Drainage Description White Primary Dressing Silver Dressing Comment tegederm ag mesh Wound Secondary Dressing Type Absorbant Pad Wound Debridement Method Gauze Left Anterior Knee Wound Type Incision Wound Length (cm) 1.0 Wound Width (cm) 0.5 Wound Depth (cm) 0.4 Wound Bed Appearance Yellow Percentage of [place] (%) 100 Percentage of [place] (Yellow) (%) 100 Wound Margins Description Well Defined Surrounding Tissue Appearance [place] Surrounding Tissue Temperature Warm Drainage Description None Primary Dressing Silver Dressing Comment tegederm ag mesh Wound Secondary Dressing Type Absorbant Pad Comment optifoam SA Wound Debridement Method Forceps Wound Debridement Amount of Tissue Minimal Removed Wound Debridement Result Yellow Sloughing Remains Dressing Change Patient Tolerance Tolerated Well Left Distal Knee Wound Type Incision Is This a Chronic Wound Yes Wound Length (cm) 2.0 Wound Width (cm) 1.5 Wound Depth (cm) 0.5 Wound Bed Appearance Beefy Red,White Percentage Granulated (%) 50 Percentage of Sl
== END 2020-12-12 14:35 | disposition home or self-care (01) ==
LOC: PT 14:30
PROVIDERS: PCP Family Medicine; Visit Provider Orthopaedic Surgery
DX: T81.89XA Other complications of procedures, not elsewhere classified, initial encounter (principal); Z96.651 Presence of right artificial knee joint
CPT/HCPCS: 97161; 97597

== ENCOUNTER 2021-01-09 11:31 | Emergency (ER) | payer MEDICARE, MEDICAID, SELFPAY ==
[2021-01-09 11:32] VITALS: BP 121/87; PULSE 101; RESP 18; TEMP 37; O2SAT 98; BMI 31.2
[2021-01-09 11:41] VITALS: BMI 26.6
--- NOTE | 2021-01-09 11:42 | XR_ITS ---
PROCEDURE: XR CHEST PORTABLE CLINICAL HISTORY: cough COMPARISON: CR XR CHEST PORTABLE from 09/06/2020 FINDINGS: The cardiomediastinal silhouette and pulmonary vascularity are within normal limits. A vascular stent is in place extending from the superior vena cava cephalad to the brachiocephalic region. The stent appears compressed at the brachiocephalic region similar to the previous exam. Bilateral cervical ribs are once again noted with missing anterior segment of the right 2nd rib and an old right 3rd rib fracture. Chronic increased density is present in the right lower lobe. Left lung is clear. IMPRESSION: Chronic changes right lower lobe which may be due to chronic pneumonia or volume loss. Vascular stent in place which appears collapse proximally in the brachiocephalic region on the right. Dictated by: Catalino Watkins MD 01/09/2021 12:27 Catalino Watkins MD in [facility] 01/09/2021 12:27
--- NOTE | 2021-01-09 11:57 | CT_ITS ---
PROCEDURE: CT HEAD/BRAIN WO CON CLINICAL INDICATION: possible CVA COMPARISON: CT CT HEAD/BRAIN WO CON from 07/16/2020 TECHNIQUE: Axial images obtained. All CT scans at the facility use one or more dose reduction, viz: automated exposure control, ma/kV adjustment per patient size (including targeted exams where dose is matched to indication, i.e. head), or iterative reconstruction technique. FINDINGS: No midline shift, mass effect, intracranial hemorrhage, hydrocephalus, or extra-axial fluid collection is evident. The calvarium has an unremarkable appearance. No mastoid effusion. No sinus air-fluid level. IMPRESSION: No acute intracranial finding Dictated by: Catalino Watkins MD 01/09/2021 12:31 Catalino Watkins MD in [facility] 01/09/2021 12:31
[2021-01-09 12:03] VITALS: BP 104/80; PULSE 97; RESP 16; O2SAT 96
[2021-01-09 12:10] LABS: Coronavirus 19, PCR Not Detected (NotDetected); Influenza A, PCR Not Detected (NotDetected); Influenza B, PCR Not Detected (NotDetected)
[2021-01-09 12:17] LABS: Basophils % 0.7 % (0.1-2.0); Eosinophils # 0.2 K/mm3 (0.0-0.4); Eosinophils % 3.7 % (0.1-12.0); Hematocrit 38.3 % (37.0-47.0); Hemoglobin 12.1 g/dL (12.2-16.2); Lymphocytes # 1.9 K/mm3 (0.7-4.5); Lymphocytes % 30.8 % (10-50); Mean Corpuscular HGB Conc 31.7 g/dL (31.8-35.4); Mean Corpuscular Hemoglobin 31.9 pg (27.0-31.2); Mean Corpuscular Volume 100.7 fl (81-99); Mean Platelet Volume 7.5 fl (7.4-10.4); Monocytes # 0.3 K/mm3 (0.1-1.0); Monocytes % 5.6 % (1.7-9.3); Neutrophils # 3.6 K/mm3 (1.8-7.8); Neutrophils % 59.1 % (37.0-80.0); Platelet Count 409 K/mm3 (142-424); Red Blood Count 3.81 M/mm3 (4.20-5.40); Red Cell Distribution Width 16.6 % (11.5-17.5); White Blood Count 6.1 K/mm3 (4.8-10.8)
[2021-01-09 12:19] LABS: Chloride 108 mmol/L (98-107); Sodium 142 mmol/L (136-145)
[2021-01-09 12:20] LABS: Potassium 3.7 mmoL/L (3.5-5.1)
[2021-01-09 12:22] LABS: Alanine Aminotransferase 16 U/L (12-78); Albumin Level 3.8 g/dl (3.5-5.0); Albumin/Globulin Ratio 0.9 (1.1-1.8); Alkaline Phosphatase 78 U/L (38-126); Anion Gap 11.7 mEq/L (5-15); Aspartate Amino Transferase 49 U/L (14-36); Bilirubin,Total 0.2 mg/dl (0.2-1.3); Blood Urea Nitrogen 11 mg/dl (7-17); Carbon Dioxide 26 mmol/L (22.0-30.0); Creatinine Clearance Estimated 85 mL/min (50-200); Estimated Glomerular Filt Rate 66 ml/min (>60); GFR (African American) 80 ML/MIN (>60); Globulin 4.2 g/dL (1.3-3.2)
[2021-01-09 12:23] LABS: Calcium 8.8 mg/dl (8.4-10.2); Glucose 103 mg/dl (74-100)
[2021-01-09 12:31] VITALS: BP 132/91; PULSE 94; RESP 18; O2SAT 97
--- NOTE | 2021-01-09 12:48 | HMH.EDGENADL ---
ED Disposition Clinical Impression: Unilateral weakness Disposition: Home, Self-Care Condition on Discharge: Good Additional Instructions: Follow-up with Dr. Kirkland as scheduled. Return to the emergency department for new weakness, difficulty with speech, severe headache. Referrals: Henry Kirkland MD [Primary Care Provider] - (Today as scheduled) Time of Disposition: 12:55 - Critical Care Critical Care Time: No Attestation: On 01/09/21, the high probability of a clinically significant, sudden or life threatening deterioration of the following system(s) required my full and direct attention, intervention and personal management. The time I documented below is in addition to time spent performing reported procedures but includes the following listed in this critical care notation. Medical Decision Making - Medical Records Medical records reviewed: Yes: I reviewed the patient's medical records. - Robert Inquiry Pt receiving controlled substance: No Vital Signs: 01/09/21 11:32 Temperature 98.6 F Temperature Source Oral Pulse Rate [Right] 101 H Respiratory Rate 18 Blood Pressure [Right Radial Artery] 121/87 Blood Pressure Mean [Right Radial Artery] 98 02 Sat by Pulse Oximetry 98 Oxygen Delivery Method Room Air - Lab Data Lab results reviewed: Yes: I reviewed the patient's lab results. Lab Results 01/09/21 11:45: WBC 6.1, RBC 3.81 L, Hgb 12.1 L, Hct 38.3, MCV 100.7 H, MCH 31.9 H, MCHC 31.7 L, RDW 16.6, Plt Count 409, MPV 7.5, Neut % (Auto) 59.1, Lymph % (Auto) 30.8, [place] % (Auto) 5.6, Eos % (Auto) 3.7, Baso % (Auto) 0.7, Neut # (Auto) 3.6, Lymph # (Auto) 1.9, [place] # (Auto) 0.3, Eos # (Auto) 0.2, Baso # (Auto) 0.0 01/09/21 11:45: Sodium 142, Potassium 3.7, Chloride 108 H, Carbon Dioxide 26, Anion Gap 11.7, BUN 11, Creatinine 0.90, Estimated Creat Clear 85, Estimated GFR 66, Est GFR ( Amer) 80, Glucose 103 H, Calcium 8.8, Total Bilirubin 0.2, AST 49 H, ALT 16, Alkaline Phosphatase 78, Total Protein 8.0, Albumin 3.8, Globulin 4.2 H, Albumin/Globulin Ratio 0.9 L 01/09/21 11:45: SARS-CoV-2 (PCR) Not detected, Influenza A Untype (PCR) Not detected, Influenza Type B (PCR) Not detected Result diagrams: 01/09/21 11:45 01/09/21 11:45 - Radiology Data #1 Image(s): Chest Image Reviewed: Yes I reviewed the patient's radiology results Preliminary Findings: Abnormal Possible chronic pneumonia versus scarring - CT Data CT Scan: Head Time Received: 12:[address] Reviewed: Yes: I have reviewed the patient's CT results Preliminary Findings: Normal/NAD Medical Decision Narrative: 50yo F evaluated for possible wake-up stroke on Saturday. Patient is in no acute distress on initial evaluation. She does have mild slurring to her speech and seems altered on physical exam. Patient is able to use all 4 extremities though slower and less precise movements with her right upper and right lower extremities. CT head is benign. Blood work is benign, the patient is Covid negative. Case discussed with Dr. Kirkland who request a UA/UDS. Patient has a follow-up appointment scheduled with Dr. Kirkland's office this afternoon. Given her timeline, there is no acute intervention to be undertaken for possible stroke. She is appropriate and stable for discharge home. General Adult HPI - General Chief complaint: Weakness Stated complaint: body aches, soa, weakness Time Seen by Provider: 01/09/21 12:48 Mode of Arrival: Wheelchair Limitations: No Limitations Description of Symptoms (Recalled from ER Triage Doc. by RN): pt c/o generalized weakness & slurred speech since waking up yesterday morning - History of Present Illness HPI narrative: 50yo F presents the emergency department under the direction of her PCPs office to rule out stroke. Patient reports she woke up yesterday and had difficulty with ambulating, getting dressed, speech. No prior history similar to this. She states on Saturday she went to bed in her usual state of healt
--- NOTE | 2021-01-09 12:49 | PC.NURSE ---
Dr Talley Speaking to Dr Kirkland
[2021-01-09 13:09] LABS: Microscopic, Urine URINE MICROSCOPIC (MICROSCOPIC)
[2021-01-09 13:24] LABS: Appearance,Urine CLEAR (Clear); Bilirubin,Urine Negative (Negative); Blood, Urine Negative (Negative); Color,Urine YELLOW (Yellow); Glucose,Urine (UA) Negative (Negative); Ketones,Urine Negative (Negative); Leukocyte Esterase,Urine Negative (Negative); Nitrate,Urine Negative (Negative); PH,Urine 6.5 (5.0-8.5); Protein,Urine Negative (Negative)
[2021-01-09 13:33] LABS: Barbiturates Screen,Urine Negative ng/ml (<200); Benzodiazepines Screen,Urine Positive ng/ml (<200)
[2021-01-09 13:34] LABS: Amphetamine/Metha Screen,Urine Negative ng/ml (<1000); Cannabinoid Screen,Urine Negative ng/ml (<50)
[2021-01-09 13:35] LABS: Cocaine Screen,Urine Negative ng/ml (<300); Squamous Epithelial Cell,Urine Occasional #/hpf (0-5)
[2021-01-09 13:36] LABS: Methadone Screen,Urine Negative ng/ml (<300); Opiate Screen,Urine Positive ng/ml (<300)
[2021-01-09 13:37] LABS: Phencyclidine Screen,Urine Negative ng/ml (<25)
[2021-01-09 14:05] VITALS: BP 137/95; PULSE 90; RESP 20; TEMP 37; O2SAT 97
== END 2021-01-09 14:07 | disposition home or self-care (01) ==
PROVIDERS: Emergency Provider Family Medicine; PCP Family Medicine
DX: R53.83 Other fatigue (principal); Z20.822 Contact with and (suspected) exposure to COVID-19; J44.9 Chronic obstructive pulmonary disease, unspecified; I10 Essential (primary) hypertension; I25.10 Atherosclerotic heart disease of native coronary artery without angina pectoris; F17.210 Nicotine dependence, cigarettes, uncomplicated; Z79.899 Other long term (current) drug therapy
CPT/HCPCS: 70450; 71045; 80053; 80305; 81001; 85025; 99283; C9803; U0003; U0005

== ENCOUNTER → 2021-01-10 11:52 | Outpatient (CLI) | payer MEDICARE, MEDICAID, SELFPAY ==
--- NOTE | 2021-01-10 12:06 | MR_ITS ---
PROCEDURE: MR HEAD/BRAIN WO CON CLINICAL INDICATION: stroke like symptoms COMPARISON: No exams were available for comparison TECHNIQUE: Routine multiplanar multi echo sequences are performed without gadolinium enhancement. FINDINGS: No midline shift, mass effect, intracranial hemorrhage, or hydrocephalus is evident. No evidence of acute infarction. There are few nonspecific T2 white matter hyperintensities. The pituitary, optic chiasm, corpus callosum, and craniocervical junction have an unremarkable appearance. No mastoid effusion or sinus air-fluid level. IMPRESSION: No acute intracranial findings. No evidence of acute infarction Dictated by: Catalino Watkins MD 01/10/2021 13:21 Catalino Watkins MD in [place] 01/10/2021 13:21
== END ==
PROVIDERS: PCP Family Medicine; Visit Provider Family Medicine
DX: R29.90 Unspecified symptoms and signs involving the nervous system (principal); R47.81 Slurred speech; R53.1 Weakness
CPT/HCPCS: 70551

== ENCOUNTER → 2021-01-17 08:50 | Outpatient (CLI) | payer MEDICARE, MEDICAID, SELFPAY ==
--- NOTE | 2021-01-17 09:07 | XR_ITS ---
PROCEDURE: XR KNEE RT 2V CLINICAL INDICATION: sp RT TKA, sx 09/05/20 COMPARISON: CR XR KNEE RT 4V from 05/17/2020 CR XR KNEE RT 2V from 09/05/2020 CR XR KNEE RT 2V from 09/20/2020 CR XR KNEE RT 3V from 11/30/2020 FINDINGS: No fracture or dislocation. No lytic or blastic change. There is normal mineralization. Good alignment status post total knee replacement. No evidence of orthopedic complication. No acute fracture or dislocation. No lytic or blastic change. Other findings:None. IMPRESSION: Good alignment status post total knee replacement. No evidence of orthopedic complication. Dictated by: Catalino Watkins MD 01/17/2021 12:19 Catalino Watkins MD in [facility] 01/17/2021 12:19
[2021-01-17 09:15] LABS: Basophils # 0.1 K/mm3 (0-0.2); Eosinophils # 0.3 K/mm3 (0.0-0.4); Eosinophils % 3.1 % (0.1-12.0); Hematocrit 39.6 % (37.0-47.0); Hemoglobin 12.5 g/dL (12.2-16.2); Lymphocytes # 3.4 K/mm3 (0.7-4.5); Lymphocytes % 35.5 % (10-50); Mean Corpuscular HGB Conc 31.5 g/dL (31.8-35.4); Mean Corpuscular Hemoglobin 32.6 pg (27.0-31.2); Mean Corpuscular Volume 103.5 fl (81-99); Mean Platelet Volume 8.4 fl (7.4-10.4); Monocytes # 0.7 K/mm3 (0.1-1.0); Monocytes % 7.1 % (1.7-9.3); Neutrophils # 5.1 K/mm3 (1.8-7.8); Neutrophils % 53.2 % (37.0-80.0); Platelet Count 509 K/mm3 (142-424); Red Blood Count 3.83 M/mm3 (4.20-5.40); Red Cell Distribution Width 16.7 % (11.5-17.5); White Blood Count 9.6 K/mm3 (4.8-10.8)
[2021-01-17 09:28] LABS: C-Reactive Protein 7.1 mg/L (0-4)
[2021-01-17 09:29] LABS: D-Dimer 0.89 ug/mL (0.0-0.5)
[2021-01-17 09:46] LABS: Erythrocyte Sedimentation Rate 57 mm/hr (0-30)
== END ==
PROVIDERS: Visit Provider Orthopaedic Surgery
DX: Z96.651 Presence of right artificial knee joint (principal); M25.561 Pain in right knee
CPT/HCPCS: 36415; 73560; 85025; 85378; 85651; 86140

== ENCOUNTER → 2021-03-01 12:30 | Outpatient (CLI) | payer MEDICARE, MEDICAID, SELFPAY ==
--- NOTE | 2021-03-01 12:41 | XR_ITS ---
PROCEDURE: XR KNEE RT 2V CLINICAL INDICATION: s/p RT TKA 0 0 COMPARISON: CR XR KNEE RT 2V from 09/05/2020 CR XR KNEE RT 2V from 09/20/2020 CR XR KNEE RT 3V from 11/30/2020 CR XR KNEE RT 2V from 01/17/2021 FINDINGS: Status post total knee replacement with good alignment. No fracture or dislocation. No evidence of orthopedic complication. No lytic or blastic change. Other findings:None. IMPRESSION: No acute findings. Status post total knee replacement with good alignment and no acute finding Dictated by: Catalino Watkins MD 03/01/2021 13:39 Catalino Watkins MD in [facility] 03/01/2021 13:39
[2021-03-01 12:47] LABS: Basophils % 0.6 % (0.1-2.0); Eosinophils # 0.2 K/mm3 (0.0-0.4); Eosinophils % 3.7 % (0.1-12.0); Hematocrit 40.2 % (37.0-47.0); Hemoglobin 12.8 g/dL (12.2-16.2); Lymphocytes % 35.1 % (10-50); Mean Corpuscular HGB Conc 31.8 g/dL (31.8-35.4); Mean Corpuscular Hemoglobin 32.4 pg (27.0-31.2); Mean Platelet Volume 8.7 fl (7.4-10.4); Monocytes # 0.3 K/mm3 (0.1-1.0); Monocytes % 6.2 % (1.7-9.3); Neutrophils % 54.4 % (37.0-80.0); Platelet Count 419 K/mm3 (142-424); Red Blood Count 3.94 M/mm3 (4.20-5.40); Red Cell Distribution Width 14.7 % (11.5-17.5); White Blood Count 5.5 K/mm3 (4.8-10.8)
[2021-03-01 13:13] LABS: C-Reactive Protein 24.1 mg/L (0-4)
[2021-03-01 13:35] LABS: Erythrocyte Sedimentation Rate 62 mm/hr (0-30)
== END ==
PROVIDERS: Visit Provider Orthopaedic Surgery
DX: L02.91 Cutaneous abscess, unspecified (principal); Z96.651 Presence of right artificial knee joint
CPT/HCPCS: 36415; 73560; 85025; 85651; 86140

== ENCOUNTER → 2021-04-12 13:18 | Outpatient (CLI) | payer MEDICARE, MEDICAID, SELFPAY ==
--- NOTE | 2021-04-12 13:27 | XR_ITS ---
PROCEDURE: XR KNEE RT 2V CLINICAL INDICATION: s/p RT TKA COMPARISON: No exams were available for comparison FINDINGS: No fracture or dislocation. No lytic or blastic change. There is normal mineralization. Good alignment status post total knee replacement without obvious orthopedic complications. Other findings:None. IMPRESSION: Right total knee prosthesis in place with good alignment Dictated by: Catalino Watkins MD 04/12/2021 14:08 Catalino Watkins MD in [place] 04/12/2021 14:08
[2021-04-12 13:29] LABS: Basophils # 0.1 K/mm3 (0-0.2); Basophils % 0.9 % (0.1-2.0); Eosinophils # 0.2 K/mm3 (0.0-0.4); Eosinophils % 3.9 % (0.1-12.0); Hematocrit 40.2 % (37.0-47.0); Hemoglobin 12.4 g/dL (12.2-16.2); Lymphocytes % 35.8 % (10-50); Mean Corpuscular HGB Conc 30.9 g/dL (31.8-35.4); Mean Corpuscular Hemoglobin 30.7 pg (27.0-31.2); Mean Corpuscular Volume 99.4 fl (81-99); Mean Platelet Volume 8.1 fl (7.4-10.4); Monocytes # 0.3 K/mm3 (0.1-1.0); Monocytes % 5.1 % (1.7-9.3); Neutrophils # 3.1 K/mm3 (1.8-7.8); Neutrophils % 54.3 % (37.0-80.0); Platelet Count 419 K/mm3 (142-424); Red Blood Count 4.05 M/mm3 (4.20-5.40); Red Cell Distribution Width 15.3 % (11.5-17.5); White Blood Count 5.7 K/mm3 (4.8-10.8)
[2021-04-12 13:43] LABS: C-Reactive Protein 10.6 mg/L (0-4)
[2021-04-12 14:05] LABS: Erythrocyte Sedimentation Rate 61 mm/hr (0-30)
== END ==
PROVIDERS: Visit Provider Orthopaedic Surgery
DX: L02.91 Cutaneous abscess, unspecified (principal); Z96.651 Presence of right artificial knee joint
CPT/HCPCS: 36415; 73560; 85025; 85651; 86140

== ENCOUNTER → 2021-12-07 06:25 | Outpatient (CLI) | payer MEDICARE, MEDICAID, SELFPAY | PROVIDERS: PCP Family Medicine; Visit Provider Family Medicine | DX: Z20.822 Contact with and (suspected) exposure to COVID-19 (principal) | CPT/HCPCS: C9803; U0003; U0005 ==

== ENCOUNTER → 2022-02-06 12:04 | Outpatient (CLI) | payer MEDICARE, OTHER, SELFPAY ==
--- NOTE | 2022-02-06 12:10 | XR_ITS ---
FINAL REPORT CLINICAL HISTORY: knee pain COMPARISON: 04/12/2021 FINDINGS: RIGHT KNEE Three views of the right knee reveal no evidence of fracture or dislocation. There are postoperative changes from knee arthroplasty. The bony alignment is normal. There is no evidence of joint effusion. No localized soft tissue abnormality is identified. IMPRESSION: Postoperative change with no acute abnormality identified. Reviewed, Interpreted and Dictated by Taran Lester III, MD Transcribed by Heaven Arteaga Authenticated and [facility]
== END ==
PROVIDERS: PCP Family Medicine; Visit Provider Orthopaedic Surgery
DX: M25.561 Pain in right knee (principal)
CPT/HCPCS: 73562

== ENCOUNTER → 2022-05-17 15:19 | Outpatient (CLI) | payer MEDICARE, OTHER, SELFPAY ==
[2022-05-17 15:11] LABS: Amphetamine/Metha Screen,Urine Negative ng/ml (<1000)
[2022-05-17 15:12] LABS: Barbiturates Screen,Urine Negative ng/ml (<200)
[2022-05-17 15:13] LABS: Benzodiazepines Screen,Urine Positive ng/ml (<200); Cannabinoid Screen,Urine Positive ng/ml (<50)
[2022-05-17 15:14] LABS: Cocaine Screen,Urine Negative ng/ml (<300); Methadone Screen,Urine Negative ng/ml (<300)
[2022-05-17 15:15] LABS: Opiate Screen,Urine Negative ng/ml (<300)
[2022-05-17 15:16] LABS: Phencyclidine Screen,Urine Negative ng/ml (<25)
== END ==
PROVIDERS: PCP Nurse Practitioner Family; Visit Provider Nurse Practitioner Family
DX: G89.29 Other chronic pain (principal)
CPT/HCPCS: 80305

== ENCOUNTER → 2023-02-15 23:24 | Outpatient (CLI) | payer MEDICARE, SELFPAY ==
[2023-02-15 18:36] LABS: Basophils # 0.1 K/mm3 (0-0.2); Basophils % 0.6 % (0.1-2.0); Eosinophils # 0.2 K/mm3 (0.0-0.4); Eosinophils % 2.3 % (0.1-12.0); Hematocrit 44.1 % (37.0-47.0); Hemoglobin 14.6 g/dL (12.2-16.2); Lymphocytes # 3.1 K/mm3 (0.7-4.5); Lymphocytes % 30.1 % (10-50); Mean Corpuscular Hemoglobin 34.8 pg (27.0-31.2); Mean Corpuscular Volume 105.4 fl (81-99); Mean Platelet Volume 8.4 fl (7.4-10.4); Monocytes # 0.6 K/mm3 (0.1-1.0); Monocytes % 6.1 % (1.7-9.3); Neutrophils # 6.2 K/mm3 (1.8-7.8); Neutrophils % 60.8 % (37.0-80.0); Platelet Count 366 K/mm3 (142-424); Red Blood Count 4.19 M/mm3 (4.20-5.40); Red Cell Distribution Width 16.3 % (11.5-17.5); White Blood Count 10.1 K/mm3 (4.8-10.8)
[2023-02-15 18:44] LABS: Alanine Aminotransferase 22 U/L (12-78); Albumin Level 4.4 g/dl (3.5-5.0); Alkaline Phosphatase 85 U/L (38-126); Aspartate Amino Transferase 30 U/L (14-36); Bilirubin,Total 0.3 mg/dl (0.2-1.3); Blood Urea Nitrogen 18 mg/dl (7-17); Calcium 9.4 mg/dl (8.4-10.2); Chloride 103 mmol/L (98-107); Chol/HDL Ratio 6.1 (1-3.5); Cholesterol 270 mg/dl (140-200); Estimated Glomerular Filt Rate 58 ml/min (>60); GFR (African American) 70 ML/MIN (>60); Globulin 4.2 g/dL (1.3-3.2); Glucose 105 mg/dl (74-100); HDL Cholesterol 44 mg/dl (40-60); Potassium 3.5 mmoL/L (3.5-5.1); Sodium 138 mmol/L (136-145); Total Protein,Serum 8.6 g/dl (6.3-8.2); Triglycerides 180 mg/dl (30-150); VLDL Cholesterol 36 mg/dL (0-40)
[2023-02-15 18:54] LABS: Direct LDL Cholesterol 153.22 mg/dL (100-129)
[2023-02-15 19:16] LABS: Thyroid Stimulating Hormone 1.42 uIU/mL (0.465-4.68)
[2023-02-15 19:28] LABS: Anion Gap 16.5 mEq/L (5-15); Carbon Dioxide 22 mmol/L (22.0-30.0)
== END ==
PROVIDERS: PCP Family Medicine; Visit Provider Family Medicine
DX: I25.10 Atherosclerotic heart disease of native coronary artery without angina pectoris (principal); I87.1 Compression of vein; R53.1 Weakness; G89.29 Other chronic pain; Z72.0 Tobacco use
CPT/HCPCS: 80053; 80061; 84443; 85025

== ENCOUNTER 2024-06-12 15:00 | Outpatient (CLI) | payer MEDICARE, MEDICAID, SELFPAY ==
[2024-06-12 18:43] LABS: Albumin Level 4.2 g/dl (3.5-5.0); Chloride 107 mmol/L (98-107); Sodium 143 mmol/L (136-145)
[2024-06-12 18:46] LABS: Alanine Aminotransferase 27 U/L (12-78); Albumin/Globulin Ratio 1.4 (1.1-1.8); Alkaline Phosphatase 79 U/L (38-126); Anion Gap 13.9 mEq/L (5-15); Aspartate Amino Transferase 27 U/L (14-36); Bilirubin,Total 0.3 mg/dl (0.2-1.3); Blood Urea Nitrogen 6 mg/dl (7-17); Carbon Dioxide 25 mmol/L (22.0-30.0); Estimated Glomerular Filt Rate 58 ml/min (>60); GFR (African American) 70 ML/MIN (>60); Globulin 3.1 g/dL (1.3-3.2); Glucose 77 mg/dl (74-100); Total Protein,Serum 7.3 g/dl (6.3-8.2)
[2024-06-12 19:13] LABS: Potassium 2.9 mmoL/L (3.5-5.1)
== END 2024-06-12 23:59 | disposition home or self-care (01) ==
LOC: LAB.DROPOF 06-13 11:56
PROVIDERS: PCP Family Medicine; Visit Provider Family Medicine
DX: I65.29 Occlusion and stenosis of unspecified carotid artery (principal)
CPT/HCPCS: 80053

== ENCOUNTER 2024-06-19 10:25 | Outpatient (CLI) | payer MEDICARE, MEDICAID, SELFPAY ==
[2024-06-19 19:23] LABS: Alanine Aminotransferase 20 U/L (12-78); Albumin Level 3.8 g/dl (3.5-5.0); Albumin/Globulin Ratio 1.2 (1.1-1.8); Alkaline Phosphatase 89 U/L (38-126); Aspartate Amino Transferase 26 U/L (14-36); Bilirubin,Total 0.2 mg/dl (0.2-1.3); Blood Urea Nitrogen 11 mg/dl (7-17); Carbon Dioxide 25 mmol/L (22.0-30.0); Estimated Glomerular Filt Rate 58 ml/min (>60); GFR (African American) 70 ML/MIN (>60); Globulin 3.2 g/dL (1.3-3.2); Glucose 87 mg/dl (74-100); Potassium 3.6 mmoL/L (3.5-5.1); Sodium 140 mmol/L (136-145)
[2024-06-19 20:05] LABS: HIV Combo NEGATIVE (Negative)
[2024-06-19 20:11] LABS: Hepatitis C Ab Qual. W/ RFX NEGATIVE (Negative)
[2024-06-19 20:31] LABS: Anion Gap 9.6 mEq/L (5-15); Chloride 109 mmol/L (98-107)
== END 2024-06-19 23:59 | disposition home or self-care (01) ==
LOC: LAB.DROPOF 06-22 10:26
PROVIDERS: PCP Family Medicine; Visit Provider Family Medicine
DX: E87.8 Other disorders of electrolyte and fluid balance, not elsewhere classified (principal); Z11.59 Encounter for screening for other viral diseases
CPT/HCPCS: 80053; 86803; 87389

== ENCOUNTER 2024-07-08 14:30 | Outpatient (CLI) | payer MEDICARE, MEDICAID, SELFPAY ==
[2024-07-09 09:49] LABS: Alanine Aminotransferase 18 U/L (12-78); Albumin Level 4.2 g/dl (3.5-5.0); Albumin/Globulin Ratio 1.3 (1.1-1.8); Alkaline Phosphatase 72 U/L (38-126); Anion Gap 16.8 mEq/L (5-15); Aspartate Amino Transferase 25 U/L (14-36); Bilirubin,Total 0.5 mg/dl (0.2-1.3); Blood Urea Nitrogen 5 mg/dl (7-17); Calcium 9.4 mg/dl (8.4-10.2); Carbon Dioxide 18 mmol/L (22.0-30.0); Chloride 110 mmol/L (98-107); Estimated Glomerular Filt Rate 58 ml/min (>60); GFR (African American) 70 ML/MIN (>60); Globulin 3.2 g/dL (1.3-3.2); Glucose 89 mg/dl (74-100); Potassium 3.8 mmoL/L (3.5-5.1); Sodium 141 mmol/L (136-145); Total Protein,Serum 7.4 g/dl (6.3-8.2)
== END 2024-07-08 23:59 | disposition home or self-care (01) ==
LOC: LAB.DROPOF 07-09 09:14
PROVIDERS: PCP Family Medicine; Visit Provider Family Medicine
DX: I11.9 Hypertensive heart disease without heart failure (principal); E78.5 Hyperlipidemia, unspecified
CPT/HCPCS: 80053

== ENCOUNTER 2024-08-14 07:51 | Outpatient (CLI) | payer MEDICARE, MEDICAID, SELFPAY ==
[2024-08-14 18:07] LABS: Albumin Level 4.1 g/dl (3.5-5.0); Chloride 109 mmol/L (98-107); Potassium 4.1 mmoL/L (3.5-5.1); Sodium 142 mmol/L (136-145)
[2024-08-14 18:10] LABS: Alanine Aminotransferase 18 U/L (12-78); Albumin/Globulin Ratio 1.1 (1.1-1.8); Alkaline Phosphatase 97 U/L (38-126); Anion Gap 15.1 mEq/L (5-15); Aspartate Amino Transferase 27 U/L (14-36); Bilirubin,Total 0.3 mg/dl (0.2-1.3); Blood Urea Nitrogen 11 mg/dl (7-17); Calcium 9.2 mg/dl (8.4-10.2); Carbon Dioxide 22 mmol/L (22.0-30.0); Estimated Glomerular Filt Rate 47 ml/min (>60); GFR (African American) 57 ML/MIN (>60); Globulin 3.8 g/dL (1.3-3.2); Glucose 106 mg/dl (74-100); Total Protein,Serum 7.9 g/dl (6.3-8.2)
== END 2024-08-14 23:59 | disposition home or self-care (01) ==
LOC: LAB.DROPOF 08-15 07:51
PROVIDERS: PCP Family Medicine; Visit Provider Family Medicine
DX: E87.6 Hypokalemia (principal)
CPT/HCPCS: 80053

== ENCOUNTER 2024-11-25 15:39 | Outpatient (CLI) | payer MEDICARE, MEDICAID, SELFPAY ==
--- OUTSIDE RECORDS SUMMARY | 2024-10-12 10:40 | XMS_ITS | Encounter Summary ---
Author Organization [facility] Address [address] [place] [address] Care Team Providers Care Automobile Relocation Engineer Name Role Phone Henry Kirkland MD Primary Care Provider [phone] Annia Rodriguez MD Unavailable [phone] Reason for Referral * Consultation (Routine) - Authorized Specialty Diagnoses / Procedures Referred By Contac t Referred To Contact Cardiology Diagnoses Persistent atrial fibrillation (CMS/HCC) Nelia Viveros MD [address] [address] Phone: tel: fax: Referral ID Status Reason Start Date Expiration Date Visits Requested Visits Authorized [id number] Authorized Specialty Services Required 10/12/2024 04/13/2026 1 1 Scheduling Instructions Pt needs to go back to DR. Annia Rodriguez in [place] Encounter Details Date Type Department Care Team (Late st Contact Info) Description 10/12/2024 10:40 AM EDT Office Visit [facility] [address], [address] [place] [address] Nelia Viveros MD [id number] [place] [address] Persistent atrial fibrillation (CMS/HCC) (Primary Dx); Coronary artery disease of [place] artery of [place] heart with stable angina pectoris (CMS/HCC); Tobacco abuse; Mitral valve insufficiency, unspecified etiology Social History Tobacco Use Types Packs/Day Years Used Date Smoking Tobacco: Every Day Cigarettes 0.3 30 Smokeless Tobacco: Never Alcohol Use Standard Drinks/Week Comments No 0 (1 standard drink = 0.6 oz pur e alcohol) CAGE ASSESSMENT Answer Date Recorded Cage unable to access Not on file 09/06/2022 Cage max number of drinks Not on file 2022 Cage Beverages a week Not on file 09/06/2022 Have you ever felt you should CUT down on your d rinking? 0 09/06/2022 Have you been ANNOYED by people criticizing your drinking? 0 09/06/2022 Have you felt GUILTY about your drinking? 0 09/06/2022 Have you had a drink first t raul in the morning (EYE-BAG MACHINE SET UP OPERATOR) to steady your nerves or to get rid of a hangover? 0 09/06/2022 CAGE Questionnaire Score 0 023 PHQ-2A Answer Date Recorded Depression Risk 0 10/12/2024 Comments No Sex and Gender Information Value Date Recorded Sex Assigned at Not on file Legal Sex Female 8:44 PM EDT Gender Identity Not on file Sexual Orientation Not on file documented as of this encounter Last Filed Vital Signs Vital Sign Reading Time Taken Comments Blood Pressure 112/77 10/12/2024 11:28 AM EDT Pulse 109 10/12/2024 11:30 AM EDT Temperature - - Respiratory Rate - - Oxygen Saturation 100% 10/12/2024 11:28 AM EDT Inhaled Oxygen Concentration - - Weight 63.3 kg (139 lb 8.8 oz) 10/12/2024 11:28 AM EDT Height 152.4 cm (5') 10/12/2024 11:28 AM EDT Body Mass Index 27.25 10/12/2024 11:28 AM EDT documented in this encounter Miscellaneous Notes * Addendum Note - Shawnee Shaikh - 10/12/2024 10:40 AM EDTAddended by: SHAWNEE SHAIKH on: 10/12/2024 01:33 PM Modules accepted: Orders * Progress Notes - William Sesay PA - 10/12/2024 10:40 AM EDT Reason for visit / Chief Complaint: exertional fatigue History of present illness: Gila Arias is a 54 y.o. female referred to us in consultation by Dr York in regards to CAD. Is a very pleasant 54-year-old female with a longstanding history of chronic obstructive pulmonary disease, hypertension, thoracic outlet syndrome, recent myocardial infarction in 2023 having undergone percutaneous coronary intervention, atrial fibrillation currently on Xarelto. She was referred tous in regards to severe mitral valve regurgitation by way of echo from January 2024. Her ejection fraction at that time was preserved at 60-65%. She was scheduled for a follow up transesophageal echohowever we have had some timed in the scheduled. She had undergone this procedure on the September which demonstrates again normal ventricular function 50-60%. The left atrium size is normal however left atrial appendage was evaluated in multiple views given the history of atrial fibrillation and no thrombus had been seen. The mitral valve leaflets were normal in appearance no evidence of prolapse. There is mild MR with a central jet. The estimated amount of this regurgitation based on the estimated regurgitant orifice area is in the mild range. The tricuspid valve was normal in appearance and function. Aortic valve was trileaflet in configuration with some prolapsing of the non coronary cusp. However there was mild aortic valve regurgitation with a centrally directed jet no hemodynamically significant stenosis was appreciated. Relative to her coronary anatomy, she underwent a hea rt catheterization on September 04, 2024 which demonstrated a widely patent stent in the left main ostium. There was mid LAD stenosis of about 90% otherwise there was mild diffuse disease throughout the remainder of the LAD which was functionally significant based on IFR of 0.73. Again this was measured at the focal lesion of LAD. The circumflex is a large caliber vessel giving rise to 2 obtuse marginal branches in the posterolateral branch. These did not have any angiographically significant disease. And finally right coronary artery was a large caliber dominant vessel giving rise to an acute marginal branch and there was no angiographically significant disease. Her chronic comorbid conditions that impact our treatment planning include: Cardiac Arrhythmia NYHA Classification: Class II: Mild symptoms with ordinary activity. Smoking Cessation: Current smoker, discussed smoking cessation strategies 10 minutes Active Problems: Patient Active Problem List Diagnosis Date Noted Mitral valve insufficiency 08/24/2024 Persistent atrial fibrillation ([facility]/HCC) 08/24/2024 BMI 26.0-26.9,adult 06/23/2024 Pain due to total right knee replacement, subsequent encounter 09/06/2022 Pain due to total right knee replacement ([facility]/HCC) 08/07/2022 History of right knee joint replacement 08/07/2022 Medical History: Past Medical History Pertinent Negatives[1] Surgical History: Surgical History[2] Social History: Tobacco: Tobacco Use: High Risk (09/24/2024) Patient History Smoking Tobacco Use: Every Day Smokeless Tobacco Use: Never Passive Exposure: Not on file Alcohol: Alcohol Use: Low Risk (09/06/2022) CAGE ASSESSMENT Cage unable to access: Not on file Cage max number of drinks: Not on file Cage Beverages a week: Not on file Cage Questionnaire cut down: 0 Cage questionnaire annoyed: 0 Cage questionnaire guilty: 0 Cage questionnaire eye de icer: 0 Cage Overall score: 0 Illicit drug use: Social History Substance and Sexual Activity Drug Use Not Currently Types: Marijuana Comment: Drug use: Marijuana past use Family History: family history includes Cardiac disorder in an other family member; Conversions - Other in an otherfamily member; Diabetes in an other family member; Other cancer in an other family member. Allergies: Allergies[3] Medications: Prior to Admission medications Medication Sig Start Date End Date Taking? Authorizing Provider acetaminophen (Tylenol Extra Strength) 500 MG tablet Take 2 tablets (1,000 mg) by mouth every 8 (eight) hours. 09/11/22 Amaya Dominique APRN albuterol 1.25 MG/3ML nebulizer solution 3 mL every 6 hours as needed for shortness of breath. 07/07/18 Shea Zabala MD albuterol 108 (90 Base) MCG/ACT inhaler Inhale 2 puffs every 4 hours as needed for shortness of breath. Shea Zabala MD atorvastatin (Lipitor) 80 MG tablet Take 1 tablet by mouth daily. 09/04/24 Placido Maharaj MD brexpiprazole (Rexulti) 2 MG tablet tablet Take 1 tablet (2 mg) by mouth nightly. Patient not taking: Reported on 09/04/2024 Shea Zabala MD clopidogrel (Plavix) 75 MG tablet Take 1 tablet by mouth daily. Shea Zabala MD Dextromethorphan-buPROPion ER (Auvelity) 45-105 MG tablet controlled-release Take 1 tablet by mouth2 (two) times a day. Shea Zabala MD diazePAM (Valium) 10 MG tablet Take 1 tablet by mouth 3 times a day as needed for anxiety. 02/15/22viShea gary MD hydrOXYzine HCl (Atarax) 50 MG tablet Take 1 tablet by mouth 3 times a day as needed for anxiety. 05/20/21 Shea Zabala MD metoprolol tartrate (Lopressor) 25 MG tablet Take 1 tablet by mouth 2 times a day. Shea Zabala MD naloxone (Narcan) 4 mg/0.1 mL nasal spray CALL 911. SPR CONTENTS OF ONE SPRAYER (0.1ML) INTO ONE NOSTRIL. REPEAT IN 2-3 MIN IF SYMPTOMS OF OPIOID EMERGENCY PERSIST, ALTERNATE NOSTRILS 02/02/22 Shea Zabala MD pregabalin (Lyrica) 150 MG capsule Take 1 capsule by mouth daily. Shea Zabala MD QUEtiapine (SEROquel) 300 MG tablet Take 2 tablets by mouth nightly. 2 tablets nightly Shea Zabala MD rivaroxaban (Xarelto) 20 MG tablet Take 1 tablet by mouth daily. 07/07/18 Shea Zabala MD Treajith Ellipta 100-62.5-25 MCG/INH aerosol powder Take 1 puff by mouth 1 (one) time each day. 02/02/22 Shea Zabala MD Physical exam: There were no vitals taken for this visit. Physical Exam Constitutional: Appearance: Normal appearance. HENT: Head: Normocephalic and atraumatic. Right Ear: Tympanic membrane normal. Nose: Nose normal. Eyes: Pupils: Pupils are equal, round, and reactive to light. Cardiovascular: Rate and Rhythm: Normal rate and regular rhythm. Heart sounds: No murmur heard. Abdominal: General: Abdomen is flat. Palpations: Abdomen is soft. Musculoskeletal: General: Normal range of motion. Cervical back: Normal range of motion and neck supple. Skin: General: Skin is warm and dry. Capillary Refill: Capillary refill takes less than 2 seconds. Neurological: Mental Status: She is alert and oriented to person, place, and time. Psychiatric: Mood and Affect: Mood normal. Imaging: Echo, Adult Transesophageal (CK) Result Date: 09/24/2024 Mitral Valve: The mitral valve leaflets are normal in appearance with no evidence of mitral valve prolapse. There is mild mitral regurgitation with a central jet. Normal flow patterns in the pulmonary veins. Cardiac Cath Results: None Impression: 1. CAD, 2. Atrial Fibrillation-Persistent 3. Tobacco Use Plan: Follow up with Dr. York for left heart catheterization and stenting of the LAD [1] Past Medical History: Diagnosis Date Afib (CMS/HCC) Asthma Cancer (CMS/HCC) COPD (chronic obstructive pulmonary disease) (CMS/HCC) Coronary artery disease History of hypercoagulable state On home oxygen therapy 3L nightly CHALO (obstructive sleep apnea) Home O2 3L nightly Personal history of malignant neoplasm of breast History of malignant neoplasm of breast Personal history of other diseases of the circulatory system History of coronary artery disease Personal history of other diseases of the respiratory system History of pulmonary emphysema Personal history of other venous thrombosis and embolism History of venous thrombosis Pulmonary embolism Stroke (CMS/HCC) Total knee replacement status, right [2] Past Surgical History: Procedure Laterality Date BONE RESECTION, RIB Right pt states 1st rib removed CAROTID STENT Right CARPAL TUNNEL RELEASE Bilateral carpal tunnel surgery from [email or web address] KNEE ARTHROPLASTY Right KNEE ARTHROSCOPY Left torn ligaments MASTECTOMY Left mastectomy from [email or web address] TUBAL LIGATION N/A tubal ligation bilateral from [email or web address] [3] Allergies Allergen Reactions Tramadol Nausea And Vomiting documented in this encounter Plan of Treatment Scheduled Referrals Name Type Priority Associated Diagnoses Orde r Schedule Ambulatory referral to Cardiology Outpatient Referral Routine Persistent atrial fibrillation (CMS/HCC) Expected: 10/12/2024 (Approximate), Expires: 04/15/2026 documented as of this encounter Visit Diagnoses Diagnosis Persistent atrial fibrillation (CMS/HCC)- Primary Atrial fibrillation Coronary artery disease of [place] artery of [place] heart with stable angina pectoris (CMS/HCC) Tobacco abuse Tobacco use disorder Mitral valve insufficiency, unspecified etiology documented in this encounter Additional Health Concerns Assessment Noted Time A fall risk assessment has been complete d for the patient 08/24/2024 10:03 AM EDT A Body Mass Index follow-up plan has been documented for the patient 10/12/2024 11:52 AM EDT documented as of this encounter Care Teams Automobile Relocation Engineer Relationship Specialty Start Date End Date Henry Kirkland MD PCP - General 08/02/22 [facility]ia [facility] [place] [address] 05/27/24 documented as of this encounter
[2024-11-25 19:58] LABS: Albumin Level 4.3 g/dl (3.5-5.0); Chloride 104 mmol/L (98-107); Potassium 3.6 mmoL/L (3.5-5.1); Sodium 137 mmol/L (136-145)
[2024-11-25 20:01] LABS: Alanine Aminotransferase 20 U/L (12-78); Albumin/Globulin Ratio 1.3 (1.1-1.8); Alkaline Phosphatase 114 U/L (38-126); Anion Gap 13.6 mEq/L (5-15); Aspartate Amino Transferase 29 U/L (14-36); Bilirubin,Total 0.5 mg/dl (0.2-1.3); Blood Urea Nitrogen 8 mg/dl (7-17); Calcium 9.3 mg/dl (8.4-10.2); Carbon Dioxide 23 mmol/L (22.0-30.0); Creatinine,Serum 0.80 mg/dl (0.52-1.04); Estimated Glomerular Filt Rate 74 ml/min (>60); GFR (African American) 90 ML/MIN (>60); Globulin 3.3 g/dL (1.3-3.2); Glucose 90 mg/dl (74-100); Total Protein,Serum 7.6 g/dl (6.3-8.2)
--- OUTSIDE RECORDS SUMMARY | 2024-11-26 12:18 | XMS_ITS | Encounter Summary ---
Author Organization Healthcare Address [address] [place] [address] Care Team Providers Care Structural Steel Equipment Erector Name Role Phone Hnery Kirkland MD Primary Care Provider [phone] Annia Rodriguez MD Unavailable [phone] Encounter Details Date Type Department Care Team (Late st Contact Info) Description 11/17/2024 Telephone [facility] [address], [address] [place] [address] Alyssa Jorge RN [id number] Social History Tobacco Use Types Packs/Day Years [...] drink first t raul in the morning (EYE-SURVEY RESEARCHER) to steady your nerves or to get rid of a hangover? 0 09/06/2022 CAGE Questionnaire Score 0 023 PHQ-2A Answer Date Recorded Depression Risk 0 10/12/2024 Comments No Sex and Gender Information Value Date Recorded Sex Assigned at Not on file Legal Sex Female 8:44 PM EDT Gender Identity Not on file Sexual Orientation Not on file documented as of this encounter Miscellaneous Notes * Telephone Encounter - Alyssa Jorge RN - 11/17/2024 2:42 PM EDT Attempted to return pt call, No answer, No VM documented in this encounter Plan of Treatment Not on file documented as of this encounter Visit Diagnoses Not on filedocumented in this encounter Additional Health Concerns Assessment Noted Time A fall risk assessment has been complete d for the patient 08/24/2024 10:03 AM EDT A Body Mass Index follow-up plan has been documented for the patient 10/12/2024 11:52 AM EDT documented as of this encounter Care Teams Structural Steel Equipment Erector Relationship Specialty Start Date End Date Henry Kirkland MD PCP - General 08/02/22 Annia Rodriguez MD [address] [place] [address] 05/27/24 documented as of this encounter
--- OUTSIDE RECORDS SUMMARY | 2024-11-26 12:18 | XMS_ITS | Encounter Summary ---
Author Organization Healthcare Address [address] [place] [address] Care Team Providers Care Manager [employer] Name Role Phone Henry Kirkland MD Primary Care Provider [phone] Annia Rodriguez MD Unavailable [phone] Encounter Details Date Type Department Care Team (Late st Contact Info) Description 10/23/2023 Orders Only External Location [address] [place] [address] Provider, External Social History Tobacco Use Types Packs/Day Years [...] drink first t raul in the morning ([employer]) to steady your nerves or to get rid of a hangover? 0 09/06/2022 CAGE Questionnaire Score 0 023 Comments No Sex and Gender Information Value Date Recorded Sex Assigned at Not on file Legal Sex Female 8:44 PM EDT Gender Identity Not on file Sexual Orientation Not on file documented as of this encounter Plan of Treatment Not on file documented as of this encounter Procedures Procedure Name Priority Date/Time Associated Diagnosis Comments US OUTSIDE IMAGES 10/23/2023 3:15 PM EDT documented in this encounter Results * US OUTSIDE IMAGES (10/23/2023 3:15 PM EDT) Anatomical Region Laterality Modality Ultrasound 10/23/2023 3:15 PM EDT us External Provider IMG US PROCEDURES Final Result documented in this encounter Visit Diagnoses Not on filedocumented in this encounter Additional Health Concerns Assessment Noted Time A fall risk assessment has been complete d for the patient 11/27/2022 4:39 PM EDT A Body Mass Index follow-up plan has been documented for the patient 11/27/2022 4:58 PM EDT documented as of this encounter Care Teams Manager Automotive Relationship Specialty Start Date End Date Henry Kirkland MD PCP - General 08/02/22 Annia Rodriguez MD [address] [place] [address] 05/27/24 documented as of this encounter
--- OUTSIDE RECORDS SUMMARY | 2024-11-26 12:19 | XMS_ITS | Clinical Summary ---
Author Organization [facility] Address [address] [place] [address] Care Team Providers Care Revenue Director Name Role Phone Henry Kirkland MD Primary Care Provider [phone] Annia Rodriguez MD Unavailable [phone] Allergies Active Allergy Reactions Criticality Noted Date Comments Tramadol Nausea And Vomiting High 07/07/2018 Medications albuterol 108 (90 Base) MCG/ACT inhaler Inhale 2 puffs every 4 hours as needed for shortness of breath. Active albuterol 1.25 MG/3ML nebulizer solution 3 mL every 6 hours as needed for shortness of breath. 9 Active diazePAM (Valium) 10 MG tablet Take 1 tablet by mouth 3 times a day as needed for anxiety. 2 Active Trelegy Ellipta 100-62.5-25 MCG/INH aerosol powder Take 1 puff by mouth 1 (one) time each day. 2 Active hydrOXYzine HCl (Atarax) 50 MG tablet Take 1 tablet by mouth 3 times a day as needed for anxiety. 2 Active metoprolol tartrate (Lopressor) 25 MG tablet Take 1 tablet by mouth 2 times a day. Active naloxone (Narcan) 4 mg/0.1 mL nasal spray CALL 911. SPR CONTENTS OF ONE SPRAYER (0.1ML) INTO ONE NOSTRIL. REPEAT IN 2-3 MIN IF SYMPTOMS OF OPIOID EMERGENCY PERSIST, ALTERNATE NOSTRILS 2 Active QUEtiapine (SEROquel) 300 MG tablet Take 2 tablets by mouth nightly. 2 tablets nightly Active rivaroxaban (Xarelto) 20 MG tablet Take 1 tablet by mouth daily. 9 Active brexpiprazole (Rexulti) 2 MG tablet tablet Take 1 tablet (2 mg) by mouth nightly. Active Dextromethorpha n-buPROPion ER (Auvelity) 45-105 MG tablet controlled-rele ase Take 1 tablet by mouth 2 (two) times a day. Active acetaminophen (Tylenol Extra Strength) 500 MG tablet Take 2 tablets (1,000 mg) by mouth every 8 (eight) hours. 100 tablet 3 Active clopidogrel (Plavix) 75 MG tablet Take 1 tablet by mouth daily. Active pregabalin (Lyrica) 150 MG capsule Take 1 capsule by mouth daily. Active atorvastatin (Lipitor) 80 MG tablet Take 1 tablet by mouth daily. 30 tablet 5 5 Active Active Problems Problem Noted Date Diagnosed Date Mitral valve insufficiency 08/24/2024 Persistent atrial fibrillation 08/24/2024 BMI 27.0-27.9,adult 06/23/2024 Pain due to total right knee replacement, subsequent encounter 09/06/2022 Pain due to total right knee replacement 023 Overview (08/07/2022): Added automatically from request for surgery [id number] History of right knee joint replacement 08/08/19 23 Overview (08/07/2022): Added automatically from request for surgery [id number] Encounters Date Type Department Care Team Description 11/17/2024 Telephone [facility] [address], [address] [place] [address] Alyssa Jorge RN 10/12/2024 10:40 AM EDT Office Visit [facility] [address], [address] [place] [address] Nelia Viveros MD Persistent atrial fibrillation (CMS/HCC) (Primary Dx); 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 (CMS/HCC); Tobacco abuse; Mitral valve insufficiency, unspecified etiology 10/12/2024 Travel 09/24/2024 1:00 PM EDT - 09/24/2024 11:59 PM EDT Hospital Encounter Cardiac Imaging [address] [place] [address] Rheumatic mitral regurgitation Discharge Disposition: Home or Self Care 09/24/2024 Travel 09/04/2024 7:30 AM EDT - 09/04/2024 8:30 AM EDT Surgery Cardiac [facility] Att[facility] [address] [place] [address] Jamar Elise MD Left heart catheterization [29805 (CPT )] 09/04/2024 6:54 AM EDT - 09/04/2024 11:55 AM EDT Hospital Encounter [facility] [address] [place] [address] Jamar Elise MD Mitral valve insufficiency, unspecified etiology; Persistent atrial fibrillation (CMS/HCC) Discharge Disposition: Home or Self Care from Last 3 Months Family History Medical History Relation Name Comments Conversions - Other Other 1 Emphysem a, compensatory Cardiac disorder Other 2 Diabetes Other 3 Other cancer Other 4 Anesthesia problems Neg Hx Malig Hyperthermia Neg Hx Relation Name Status Comments Other 1 Other 2 Other 3 Other 4 Social History Tobacco Use Types Packs/Day Years Used Date Smoking Tobacco: Every Day Cigarettes 0.3 30 Smokeless Tobacco: Never Tobacco Cessation:Ready to Q uit: Not Asked; Counseling Given: Not Answered Alcohol Use Standard Drinks/Week Comments No 0 [...] drink first t raul in the morning (EYE-INSPECTOR MACHINE CUT GLASS) to steady your nerves or to get rid of a hangover? 0 09/06/2022 CAGE Questionnaire Score 0 023 PHQ-2A Answer Date Recorded Depression Risk 0 10/12/2024 Comments No Sex and Gender Information Value Date Recorded Sex Assigned at Not on file Legal Sex Female 8:44 PM EDT Gender Identity Not on file Sexual Orientation Not on file Last Filed Vital Signs Vital Sign Reading Time Taken Comments Blood Pressure 112/77 10/12/2024 11:28 AM EDT Pulse 109 10/12/2024 11:30 AM EDT Temperature 36.6 C (97.8 F) 09/04/2024 9:14 AM EDT Respiratory Rate 20 09/24/2024 3:16 PM EDT Oxygen Saturation 100% 10/12/2024 11:28 AM EDT Inhaled Oxygen Concentration - - Weight 63.3 kg (139 lb 8.8 oz) 10/12/2024 11:28 AM EDT Height 152.4 cm (5') 10/12/2024 11:28 AM EDT Body Mass Index 27.25 10/12/2024 11:28 AM EDT Plan of Treatment Health Maintenance Due Date Last Done Comments [facility]-HIV Screening 1969 [facility]-Medicare Annual Wellness (AWV) 1969 [facility]-/Child/Adol SDOH Screenings 1970 [facility]- SDOH Screenings 08/29/1987 [facility]-Adult SDOH Screenings 08/29/1987 [facility]-DTaP,Tdap,and Td Vaccines (1 - Tdap) 1988 [facility]-Hepatitis B Vaccines (1 of 3 - 19+ 3-dose series) 1988 [facility]-Pap Smear 1990 [facility]-Cervical Cancer Screening 08/29/1999 [facility]-HPV/Cotest 08/29/1999 CT Colonography 2014 Colonoscopy 2014 FIT-DNA 2014 FIT 2014 FOBT 2014 Sigmoidoscopy 2014 [facility]-Colorectal Cancer Screening 2014 [facility]-Zoster Vaccines (1 of 2) 08/29/2019 [id number] Vaccine (1 - season) 2023 [facility]-Influenza Vaccine (#1) 12/21/202402/15, 04/18/2020, 02/16/2019, Additional history exists [facility]-Depression Screening 10/12/2025 10/12/2024 [facility]-Hepatitis C Screening Completed 06/04/2018 [facility]-Pneumococcal Vaccine: 50+ Years Completed 02/15/2023, 04/09/2017 [facility]-Obesity Intervention Completed 025, 08/24/2024, 08/24/2024, Additional history exists HPV Vaccines Aged Out No longer eligi ble based on patient's age to complete this topic [facility]-HIB Vaccines Aged Out No longer e ligible based on patient's age to complete this topic [facility]-Hepatitis A Vaccines Aged Out No longer eligible based on patient's age to complete this topic [facility]-IPV Vaccines Aged Out No longer e ligible based on patient's age to complete this topic [facility]-Rotavirus Vaccines Aged Out No lo nger eligible based on patient's age to complete this topic Medical Devices Implanted Type Area Fund Development Manager Device Identifier Shelf Expiration Date Model / Serial / Lot Chg Kit Prep Im Enhance Bone Repl - [id number] Implanted:Qty: 2 on 09/06/2022 by Constantine Abarca MD at [facility] Right: Knee [employer]-[id number] 01/16/2032 [id number] / / [id number] Chg Insert Gnsii Con Sz3-4 11m - [id number] Implanted:Qty: 1 on 09/06/2022 by Constantine Abarca MD at [facility] Right: Knee [employer]-[id number] 02/03/2032 [id number] / / [id number] Cement Palacos Lv W Gent - [id number] Implanted:Qty: 4 on 09/06/2022 by Constantine Abarca MD at [facility] Right: Knee [employer]-[id number] 06/20/2023 [id number] / / [id number] Chg Wedge Lgn Scrw Dis Fem Sz5 - [id number] Implanted:Qty: 1 on 09/06/2022 by Constantine Abarca MD at [facility] Right: Knee [employer]-[id number] 08/05/2031 [id number] / / [id number] Chg Wedge Lgn Scrw Dis Fem Sz5 - [id number] Implanted:Qty: 1 on 09/06/2022 by Constantine Abarca MD at [facility] Right: Knee [employer]-[id number] 08/05/2031 [id number] / / [id number] Chg Stem Lgn [id number] - [id number] Implanted:Qty: 1 on 09/06/2022 by Constantine Abarca MD at [facility] Right: Knee [employer]-[id number] 04/01/2032 [id number] / / [id number] Chg Femoral Lgn Ox Constrained - [id number] Implanted:Qty: 1 on 09/06/2022 by Constantine Abarca MD at [facility] Right: Knee [employer]-[id number] 07/06/2032 [id number] / / [id number] Chg Tibial Lgn Revia Base Sz 3 - [id number] Implanted:Qty: 1 on 09/06/2022 by Constantine Abarca MD at [facility] Right: Knee [employer]-[id number] 05/28/2030 [id number] / / [id number] Chg Stem Lgn [id number] - [id number] Implanted:Qty: 1 on 09/06/2022 by Constantine Abarca MD at [facility] Right: Knee [employer]-[id number] 08/31/2030 [id number] / / [id number] Chg Cone Tib Legion Id 18 Short - [id number] Implanted:Qty: 1 on 09/06/2022 by Constantine Abarca MD at [facility] Right: Knee [employer]-[id number] 06/22/2032 [id number] / / [id number] Procedures Procedure Name Priority Date/Time Associated Diagnosis Comments ECHO, ADULT TRANSESOPHAGEAL COMPLETE W/ 3D Routine 09/24/2024 2:43 PM EDT Rheumatic mitral regurgitation CORONARY ANGIOGRAPHY Routine 09/04/2024 9:10 AM EDT Mitral valve insufficiency, unspecified etiology Persistent atrial fibrillation (CMS/HCC) POCT ACT UNSOLICITED RESULTS Routine 09/04/2024 8:32 AM EDT POCT CREATININE ISTAT UNSOLICITED RESULTS Routine 09/04/2024 7:47 AM EDT TEST QUALITATIVE PLASMA Routine 09/04/2024 7:42 AM EDT BASIC METABOLIC PANEL, PLASMA STAT 09/04/2024 7:42 AM EDT CBC W/O DIFFERENTIAL STAT 09/04/2024 7:42 AM EDT HEPATITIS C ANTIBODY - ED W/REFLEX TO HCV QUANT PCR Routine 06/04/2018 8:38 PM EST from Last 3 Months or Most Recently Relevant to Health Maintenance Results * ECHO, ADULT TRANSESOPHAGEAL COMPLETE W/ 3D (09/24/2024 2:43 PM EDT) MR PISA radius 5.3 mm JONATHAN ISCV MR alias mayte 31.0 cm/s JONATHAN ISCV MR Vmax 519.0 cm/s JONATHAN ISCV MR max PG 108 mmHG JONATHAN ISCV MR EROA 0.11 cm2 JONATHAN ISCV MR VTI 143.0 cm JONATHAN ISCV MR Regurg Vol 15 mL JONATHAN ISCV Anatomical Region Laterality Modality Echocardiography Narrative 09/24/2024 4:03 PM EDT Mitral Valve: The mitral valve leaflets are normal in appearance with no evidence of mitral valve prolapse. There is mild mitral regurgitation with a central jet. Normal flow patterns in the pulmonary veins. Left Ventricle The left ventricle is normal size. The left ventricular systolic function is normal. The LVEF is visually estimated at 50 - 60%. Unable to assess diastolic function. No regional wall motion abnormalities are seen. Right Ventricle The right ventricle is normal in size. The right ventricular systolic function is normal. Unable to estimate the right ventricular systolic pressure (RVSP) due to inadequate TR signal. Left Atrium The left atrial size is normal. The left atrial appendage was evaluated in multiple views and there is no thrombus seen. The interatrial septum is intact with no evidence for an atrial septal defect. Normal flow patterns in the pulmonary veins. Right Atrium The right atrial size is normal. Chiari network (normal variant) is noted. IVC/SVC The IVC was not well visualized, and an assumed pressure of 8mmHg was used for calculations. Mitral Valve The mitral valve leaflets are normal in appearance with no evidence of mitral valve prolapse. There is mild mitral regurgitation with a central jet. The estimated amount of mitral regurgitation based on the estimated regurgitant orifice area is in the mild (<0.20 cm2) range. The estimated mitral valve regurgitant volume is in the mild (<30 mL) range. There is no mitral stenosis. Tricuspid Valve The tricuspid valve is normal in appearance. There is trace tricuspid regurgitation. There is no tricuspid stenosis. Aortic Valve The aortic valve appears to be trileaflet. The noncoronary cusp is prolapsing. There is mild aortic valve regurgitation with a centrally directed jet. There is no hemodynamically significant valvular aortic stenosis. Pulmonic Valve The pulmonic valve is normal in appearance. There is no pulmonic regurgitation. There is no pulmonic stenosis. Pericardium No pericardial effusion. Great Vessels The aortic root is normal in size. In the maximally visualized portion, the ascending aorta appears normal in size. The descending aorta is not well visualized. The main pulmonary artery is not well visualized. Study Details Informed consent was obtained prior to the procedure. A complete transesophageal echocardiogram using complete 2D and 3D imaging was performed. During the study the esophageal and transgastric view was captured. The probe was inserted by the oil field caser. There was no probe insertion difficulty. Moderate sedation was given. Sedation was performed by cardiology.Lidocaine was administered during the study. The following medications were administered during the study: 8 mg of IV midazolam, 150 mcg of IV fentanyl. There were no complications during the procedure. Procedure aborted prior to descending thoracic imaging due to patient coughing. Study Recommendation There is no recent study available for direct dahi-jn-quuv comparison. us Nelia Viveros MD CV ECHO PROCEDURES Final Resul t * CORONARY ANGIOGRAPHY (09/04/2024 9:10 AM EDT) Anatomical Region Laterality Modality Other Narrative 09/04/2024 4:01 PM EDT 54 y/o F with h/o COPD, CAD SD s/p PCI to LM in 2023, mitral valve regurgitation, Afib on Xarelto, s/p SVC stent, who is being evaluated for mitral valve surgery (pending CK), here for coronary angiogram. Conclusion: # Widely patent stent in LM ostial to mid coronary artery (a few struts extending into the cusp). # Mid LAD focal 90% stenosis with mild diffuse disease throughout the rest of the LAD, which is functionally significant based on iFR of 0.73 (almost all of iFR drop was at the focal lesion). # Successful hemostasis of right radial 5/6F arterial access site Recommendations: 0. Recommend SARGENT-LAD grafting if patient undergoes mitral valve surgery 1. Continue Plavix 75mg daily. 2. Started atorvastatin 80mg daily given underlying coronary disease and not currently on statin. 3. Continue follow-up with CT surgery, if ultimately determined to not require surgical intervention on mitral valve could consider PCI to LAD lesion. Procedure Details After informed consent was obtained, the patient was brought to the cardiac catheterization laboratory. A time out was done to confirm the correct patient, site and procedure. The patient's right wrist was prepped and draped in sterile fashion. The skin overlying the patient's right radial region was anesthetized with 1% lidocaine. Using modified Seldinger technique a 21-gauge micropuncture needle was used to puncture the right radial artery, and 0.021 guidewire was advanced into the radial artery without difficulty. A 5/6F short sheath was advanced over a guidewire and flushed. At that time a cocktail of heparin and nitroglycerin was given through the radial sheath. A 5F JR4 and JL3.5 catheters were advanced into the ascending aorta over a 0.035 J-tipped guidewire. Selective left and right coronary arteriography was then carried out in a variety of projections using small amounts of isosmolar contrast material, which was injected by hand. Given the lesion in the mid LAD we proceeded with iFR evaluation. A 6F EBU 3.5 guide catheter was used to engage the LM. 200mcg of IC nitro was given. Next a 0.014 Omni wire was advanced into the proximal left main and equalized after achieving therapeutic ACT using heparin. The wire was then advanced across the LAD lesion. iFR was found to be 0.73. No drifting was observed after pull-back. The wire was removed and a cine angiogram was obtained which revealed no dissection, distal embolization or sidebranch loss. The catheter was then withdrawn. A special care was taken not to deform the LM stent. A TR band was placed, and the radial artery introducer was removed. The TR band was inflated with 12cc of air. The patient was transferred back to the clam bed laborer holding area in good condition. Coronary Findings Diagnostic Dominance: Right Left Main: The LM is a large caliber vessel that originates from the left coronary cusp distally it bifurcates into the LAD and Lcx. There is a patent stent in the ostial LM to mid LM segment that slightly extends into the aorta. There is no angiographically significant disease in the LM. Left Anterior Descending: The LAD is a moderate caliber vessel that gives rise to 2 diagonal branches as well as multiple septal perforators before terminating at the apex of the heart. The vessel is diffusely diseased with a focal area of 90% stenosis in the mid LAD after the takeoff of D2. Mid LAD lesion is 90% stenosed. iFR was measured. iFR ratio: 0.73. Left Circumflex: The Lcx is a large caliber vessel that gives rise to 2 OM branches and 1 PL branch before terminating as a small vessel in the AV grove. There is no angiographically significant disease. Right Coronary Artery: The RCA is a large caliber dominant vessel that originates from the right coronary cusp and gives rise to 1 marginal branch. There is no angiographically significant disease. Intervention No interventions have been documented. us Nelia Viveros MD CV CARDIAC CATH PROCEDURES [facility] al Result * POCT ACT (09/04/2024 8:32 AM EDT) [facility] ACT (Low Range) 291 65 - 400 seconds 09/23/2024 9:35 AM EDT [facility] Mine Engineering Manager ID Mckenzie Elliott 09/23/2024 9:35 AM EDT [facility] ACT Device ID [id number] 09/23/2024 9:35 AM EDT [facility] Comment 09/23/2024 9:35 AM EDT [facility] Comment: ACT performed by staff at point of care. Results are reported immediately to the physician or primary caregiver. The activated clotting time is performed on patients with diverse clinical characteristics and treatment histories. Therefore, expected values are variable and results must be interpreted in the context of each individual patient. Whole Blood Venous blood specimen / Unknown 09/04/2024 8:32 AM EDT 09/23/2024 9:35 AM EDT us Jamar Elise MD LAB POINT OF CARE TE ST DOCKED DEVICE UNSOLICITED RESULTS Final Result Performing Organization Address City/[facility]/ZIP Co de Phone Number HEALTHCARE [facility] [address] LAB [address] [place] [address] * (ABNORMAL) POCT creatinine (09/04/2024 7:47 AM EDT) [facility] Creatinine, Point of Care 1.3(H) 0.6 - 1.1 mg/dL 09/04/2024 7:51 AM EDT [facility] POCT eGFR 49 mL/min/1. 73m*2 09/04/2024 7:51 AM EDT [facility] Mine Engineering Manager ID Willow Best 09/04/2024 7:51 AM EDT [facility] Device ID [id number] 09/04/2024 7:51 AM EDT [facility] Comment 09/04/2024 7:51 AM EDT [facility] Comment:Testing performed on i-STAT at the point of care. Reported eGFRcr in mL/min/1.73m2 is based the CKD-EPI 2020 equation that does not use a race coefficient. Blood Venous blood specimen / Unknown 09/04/2024 7:47 AM EDT 09/04/2024 7:51 AM EDT us Jamar Elise MD LAB POINT OF CARE TE ST DOCKED DEVICE UNSOLICITED RESULTS Final Result Performing Organization Address City/[facility]/ZIP Co de Phone Number [facility]ALTH[facility]ARE [facility] [address] LAB [address] [place] [address] * (ABNORMAL) Hemogram (CBC) (09/04/2024 7:42 AM EDT) WBC Count 6.29 3.70 - 10.30 10*3/uL LAB HEMATOLOGY METHOD 09/04/2024 7:57 AM EDT [facility] RBC Count 3.53(L) 3.90 - 5.20 10*6/uL LAB HEMATOLOGY METHOD 09/04/2024 7:57 AM EDT [facility] HGB 11.5 11.2 - 15.7 g/dL LAB HEMATOLOGY METHOD 09/04/2024 7:57 AM EDT [facility] HCT 35.0 34.0 - 45.0 % LAB HEMATOLOGY METHOD 09/04/2024 7:57 AM EDT [facility] Platelet Count 317 155 - 369 10*3/uL LAB HEMATOLOGY METHOD 09/04/2024 7:57 AM EDT [facility] MCV 99(H) 79 - 98 fL LAB HEMATOLOGY METHOD 09/04/2024 7:57 AM EDT [facility] MCH 32.6(H) 26.0 - 32.0 pg LAB HEMATOLOGY METHOD 09/04/2024 7:57 AM EDT [facility] MCHC 32.9 30.7 - 35.5 g/dL LAB HEMATOLOGY METHOD 09/04/2024 7:57 AM EDT [facility] RDW 16.6(H) 11.5 - 14.5 % LAB HEMATOLOGY METHOD 09/04/2024 7:57 AM EDT [facility] MPV 9.4 8.8 - 12.5 fL LAB HEMATOLOGY METHOD 09/04/2024 7:57 AM EDT [facility] nRBC 0.0 <=0.0 per 100 WBCs LAB HEMATOLOGY METHOD 09/04/2024 7:57 AM EDT [facility] Blood Venous blood specimen / Unknown Venipuncture / Unknown 09/04/2024 7:42 AM EDT 09/04/2024 7:50 AM EDT us Jamar Elise MD LAB BLOOD ORDERABLES Final Res ult [facility] [address] [place] [address] * hCG, serum, qualitative (09/04/2024 7:42 AM EDT) Test Negative Negative 09/04/2024 10:02 AM EDT [facility] Blood Venous blood specimen / Unknown Venipuncture / Unknown 09/04/2024 7:42 AM EDT 09/04/2024 7:49 AM EDT Narrative [facility] - 09/04/2024 10:02 AM EDT Reference Range: Males and non- females: Negative. us Jamar Elise MD LAB BLOOD ORDERABLES Final Res ult [facility] [address] [place] [address] * (ABNORMAL) Basic metabolic panel (09/04/2024 7:42 AM EDT) Glucose, Plasma 77 74 - 99 mg/dL 09/04/2024 10:02 AM EDT [facility] BUN, Plasma 14 7 - 21 mg/dL 09/04/2024 10:02 AM EDT [facility] Creatinine, Plasma 1.19(H) 0.60 - 1.10 mg/dL 09/04/2024 10:02 AM EDT [facility] BUN/Creatinine Ratio 12 09/04/2024 10:02 AM EDT [facility] Sodium, Plasma 139 136 - 145 mmol/L 09/04/2024 10:02 AM EDT [facility] Potassium, Plasma 3.9 3.6 - 4.9 mmol/L 09/04/2024 10:02 AM EDT [facility] Chloride, Plasma 105 97 - 107 mmol/L 09/04/2024 10:02 AM EDT [facility] CO2, Plasma 23 22 - 29 mmol/L 09/04/2024 10:02 AM EDT [facility] Anion Gap 11 6 - 16 mmol/L 09/04/2024 10:02 AM EDT [facility] Total Calcium, Plasma 8.9 8.9 - 10.2 mg/dL 09/04/2024 10:02 AM EDT [facility] eGFRcr 54.1 mL/min/1.7 3m*2 09/04/2024 10:02 AM EDT [facility] Comment:Reported eGFRcr in m L/min/1.73m2 is based the CKD-EPI 2020 equation that does not use a race coefficient. Blood Venous blood specimen / Unknown Venipuncture / Unknown 09/04/2024 7:42 AM EDT 09/04/2024 7:49 AM EDT us Jamar Elise MD LAB BLOOD ORDERABLES Final Res ult [facility] [address] [place] [address] * [place] Hepatitis C Antibody (06/04/2018 8:38 PM EST) [place] Hepatitis C Ab NEGATIVE Reference Range: Negative SUNQUEST 06/04/2018 8:38 PM EST 06/04/2018 8:45 PM EST Shea Provider LAB BLOOD ORDERABLES Jacquelyn l Result Performing Organization Address City/[facility]/ZIP Co de Phone Number SUNQUEST from Last 3 Months or Most Recently Relevant to Health Maintenance Insurance MEDICA[place] [facility] MEDICARE Advance Directives * Full Code (Latest Code Status on File) Date Activated Date Inactivated Comments 09/06/2022 12:53 PM 09/11/2022 1:27 PM Question Answer Comments Patient has decision-making capacity? Yes Care Teams Revenue Director Relationship Specialty Start Date End Date Henry Kirkland MD PCP - General 08/02/22 Annia Rodriguez MD [address] [place] [address] 05/27/24
--- OUTSIDE RECORDS SUMMARY | 2024-11-26 12:19 | XMS_ITS | Encounter Summary ---
Author Organization Healthcare Address [address] [place] [address] Care Team Providers Care Vegetable Tester Name Role Phone Henry Kirkland MD Primary Care Provider Annia Rodriguez MD Unavailable [phone] Encounter Details Date Type Department Care Team (Latest Contact Info) Description 10/12/2024 Travel Social History Tobacco Use Types Packs/Day Years [...] drink first t raul in the morning (EYE-SHOP TECH) to steady your nerves or to get [...] documented as of this encounter Care Teams Vegetable Tester Relationship Specialty Start Date End Date Henry Kirkland MD PCP - General 08/02/22 Annia Rodriguez MD [address] [place] [address] 05/27/24 documented as of this encounter
== END 2024-11-25 23:59 | disposition home or self-care (01) ==
LOC: LAB.DROPOF 11-26 12:17
PROVIDERS: PCP Family Medicine; Visit Provider Family Medicine
DX: I25.10 Atherosclerotic heart disease of native coronary artery without angina pectoris (principal)
CPT/HCPCS: 80053